=== PATIENT | female | born 1950 | race Caucasian/White ===

== ENCOUNTER → 2016-06-30 | Outpatient (CLI) | payer OTHER ==
[~2016-06-30] MED LIST: AMOX875T PO; BIOT800T2 PO; CALC-393 PO; CHOL2000 PO; HYDR-5688 PO; KETO10TA PO; LACT10CA3 PO; LISI-461 PO; MAGN1CAP2 PO; METO50TA7 PO; MORP15TA19 PO; MULT-506 PO; OMEG-128 PO; OXYC1TAB3 PO; SIMV10TA5 PO; TOPROL; TRIAMTERENE/HCTZ; VYTORIN
--- NOTE | 2016-06-30 12:43 | MAMMOGRAPHY REPORT ---
BILATERAL DIGITAL SCREENING MAMMOGRAM TOMOSYNTHESIS WITH CAD: 06/30/2016 CLINICAL HISTORY: Routine screening. Patient has no complaints. TECHNIQUE: Breast tomosynthesis in addition to standard 2D mammography was performed. Current study was also evaluated with a Computer Aided Detection (CAD) system. COMPARISON: Comparison is made to exams dated: 04/22/2015 mammogram, 02/10/2014 mammogram, 02/06/2013 mammogram, 02/18/2014 mammogram, 01/26/2012 mammogram, and 01/13/2010 mammogram - [facility]. BREAST COMPOSITION: The tissue of both breasts is almost entirely fatty. FINDINGS: No suspicious masses, calcifications, or areas of architectural distortion are noted in e ither breast. There has been no significant interval change compared to prior exams. A biopsy marke r clip is again noted in the right upper outer quadrant from prior benign stereotactic biopsy. Scat tered bilateral benign-appearing calcifications are not significantly changed. IMPRESSION: ACR BI-RADS CATEGORY 2: BENIGN There is no mammographic evidence of malignancy. A 1 year screening mammogram is recommended. The p atient will receive written notification of the results. Approximately 10% of breast cancers are not detected with mammography. A negative mammographic repor t should not delay biopsy if a clinically suggestive mass is present. Kelli Bowman M.D. /:06/30/2016 07:59:56 Chemist: Kayleen Acevedo RT(R)(M), [facility] letter sent: Normal 1/2 BI-RADS Code: ACR BI-RADS Category 2: Benign
== END | disposition home or self-care (01) ==
LOC: C.MAMM 07:31
PROVIDERS: ATTEND Family Medicine
DX: Z12.31 Encounter for screening mammogram for malignant neoplasm of breast (principal)

== ENCOUNTER → 2016-10-25 | Outpatient (CLI) | payer OTHER ==
[2016-10-25 09:40] LABS: MEAN CORPUSCULAR HEMOGLOBIN 28.2 pg (25-34); MEAN CORPUSCULAR HGB CONC 32.1 g/dl (32-36); MEAN PLATELET VOLUME 10.5 fL (7.4-10.4); PLATELET COUNT 265 K/uL (130-400); RED BLOOD COUNT 4.43 M/uL (4.2-5.4)
[2016-10-25 10:11] LABS: ALB/GLOB RATIO 1.1 (0.9-2); ALT/SGPT 38 U/L (12-78); AST/SGOT 21 U/L (15-37); BLOOD UREA NITROGEN 25 mg/dl (7-18); BUN/CREATININE RATIO 26.3 (10-20); CALCIUM 8.8 mg/dl (8.5-10.1); CARBON DIOXIDE 26 mmol/L (21-32); CHLORIDE 108 mmol/L (98-107); CREATININE 0.94 mg/dl (0.60-1.20); GLUCOSE 103 mg/dl (70-99); POTASSIUM 4.9 mmol/L (3.5-5.1); SODIUM 140 mmol/L (136-145)
[2016-10-25 10:16] LABS: ESTIMATED AVERAGE GLUCOSE 117 mg/dl; HA1C FLAG Normal (Normal)
[2016-10-25 10:22] LABS: ALKALINE PHOSPHATASE 83 U/L (45-117); CHOLESTEROL 179 mg/dl (0-200); CHOLESTEROL/HDL RATIO 3.5; HDL CHOLESTEROL 51 mg/dl; LDL CHOLESTEROL CALCULATED 101 mg/dl; TRIGLYCERIDES 134 mg/dl (0-150); VERY LOW DENSITY LIPOPROT CALC 27 mg/dl
--- NOTE | 2016-10-31 12:10 | CODING QUERY MEDICAL NECESSITY ---
SUPPORTING DIAGNOSIS NEEDED Dr. Malloy, A supporting diagnosis is required for the test/procedure performed on this patient in order for us to be reimbursed by the patient's insurance. Please provide a supporting diagnosis for the following test/procedure listed below next to the test name along with your signature. *If there is no additional diagnosis for this patient that would support the following test/procedure please document that below next to the test/procedure. Test(s)/Procedure(s) that require a supporting diagnosis: * [id number] GLYCATED HEMOGLOBIN DIAGNOSIS: DATE OF SERVICE: 10/25/16 Provider Signature: Date: Thank you Colton Henning [facility] Information Management Once completed, please kindly fax back to [phone] For questions please call [phone]
== END | disposition home or self-care (01) ==
LOC: C.LAB 08:19
PROVIDERS: ATTEND Family Medicine
DX: E78.00 Pure hypercholesterolemia, unspecified (principal); I10 Essential (primary) hypertension; R73.03 Prediabetes; M85.80 Other specified disorders of bone density and structure, unspecified site

== ENCOUNTER 2017-01-14 21:33 | Inpatient (IN) | payer OTHER ==
[~2017-01-14] VITALS: Ht 161.9 cm; Wt 77.5 kg
[~2017-01-14 21:33] MED LIST changes: -AMOX875T PO; -BIOT800T2 PO; -CALC-393 PO; -CHOL2000 PO; -HYDR-5688 PO; -LACT10CA3 PO; -LISI-461 PO; -MAGN1CAP2 PO; -METO50TA7 PO; -MULT-506 PO; -OMEG-128 PO; -SIMV10TA5 PO
[2017-01-14] MEDS ORDERED: MULT-506 PO (22:08)
[2017-01-14] MEDS ORDERED: CALC-393 PO (22:08)
[2017-01-14] MEDS ORDERED: CHOL2000 PO (22:08)
[2017-01-14] MEDS ORDERED: METO50TA7 PO (22:08)
[2017-01-14] MEDS ORDERED: OMEG-128 PO (22:08)
[2017-01-14] MEDS ORDERED: MAGN1CAP2 PO (22:08)
[2017-01-14] MEDS ORDERED: LACT10CA3 PO (22:08)
[2017-01-14] MEDS ORDERED: BIOT800T2 PO (22:08)
[2017-01-14] MEDS ORDERED: SIMV10TA5 PO (22:08)
[2017-01-14] MEDS ORDERED: LISI-461 PO (22:08)
[2017-01-14] MEDS ORDERED: SODIUM CHLORIDE 0.9% 1000ML 1,000 ML IV STA ×2 (22:33)
[2017-01-14] MEDS ORDERED: ONDANSETRON INJ 2 MG/ML 2 ML VIAL IV STA (22:33)
[2017-01-14 22:45] LABS: BASO % 0.3 %; BASO ABS # 0.03 K/uL (0-0.2); COMPLETE YES; EOS % 6.8 %; HEMATOCRIT 45.3 % (37-47); IG% 0.2 %; LYMPH ABS # 3.87 K/uL (1.2-3.4); MEAN CORPUSCULAR HEMOGLOBIN 29.4 pg (25-34); MEAN CORPUSCULAR HGB CONC 34.2 g/dl (32-36); MEAN PLATELET VOLUME 11.1 fL (7.4-10.4); MONO % 5.7 %; PLATELET COUNT 303 K/uL (130-400); RED BLOOD COUNT 5.27 M/uL (4.2-5.4); WHITE BLOOD COUNT 10.47 K/uL (4.8-10.8)
[2017-01-14 23:09] LABS: ALKALINE PHOSPHATASE 111 U/L (45-117); ALT/SGPT 63 U/L (12-78); BLOOD UREA NITROGEN 20 mg/dl (7-18); BUN/CREATININE RATIO 18.4 (10-20); CALCIUM 9.6 mg/dl (8.5-10.1); CARBON DIOXIDE 25 mmol/L (21-32); CHLORIDE 105 mmol/L (98-107); GLUCOSE 103 mg/dl (70-99); SODIUM 141 mmol/L (136-145)
[2017-01-15 00:25] LABS: POTASSIUM 3.9 mmol/L (3.5-5.1)
[2017-01-15 00:35] LABS: AST/SGOT 135 U/L (15-37)
[2017-01-15 00:59] LABS: AMYLASE 2809 U/L (25-115)
[2017-01-15] MEDS ORDERED: ZOLPIDEM TARTRATE 5 MG TAB PO PRN (01:00)
[2017-01-15] MEDS ORDERED: ONDANSETRON INJ 2 MG/ML 2 ML VIAL IV PRN (01:00)
[2017-01-15] MEDS ORDERED: POLYETHYLENE (MIRALAX) 17 GM PACK PO PRN (01:00)
[2017-01-15] MEDS ORDERED: ALUMINUM/MAGNESIUM/SIMETH (MAALOX MAX) 30 ML UDC PO PRN (01:00)
[2017-01-15] MEDS ORDERED: MAGNESIUM HYDROXIDE SUSP 30 ML UDC PO PRN (01:00)
--- NOTE | 2017-01-15 01:24 | EMERGENCY ROOM VISIT NOTE ---
History Report prepared by Yulissa: Mao Lucas Under the Supervision of: Dr. Abrahan Orourke M.D. First contact with patient: 22:33 Chief Complaint: VOMITING Stated Complaint: GEN ILLNESS/VOMIT Nursing Triage Summary: Pt arrives to ER via ALS with c/o acute onset N/V approx 1 hour DENITRATOR. Pt reports 8/10 abdominal pain. Pt reports symptoms began after eating dinner. History of Present Illness The patient is a 66 year old female who presents to the Emergency Room via ALS with complaints of a persistent illness that started around 2 hours ago. She says that she was fine all day, until after dinner, when she started having abdominal pain with nausea, vomiting, and diarrhea. The patient says her pain was an 8 out of 10 in severity initially, and has now subsided a bit, and she wants to hold off on pain medications for now. Pt denies LOC, headache, fevers, chills, diaphoresis, visual changes, neck pain, chest pain, breathing difficulties, back pain, melena, hematochezia, urinary symptoms, numbness, weakness, lymphadenopathy, rash, or other complaints. Source of History: patient Onset: 2 hours ago Position: other (global - illness) Timing: other (persistent) Associated Symptoms: + nausea, + vomiting, + abdominal pain, + diarrhea Note: No other associated symptoms noted. Review of Systems See HPI for pertinent positives and negatives. A total of ten systems were reviewed and were otherwise negative. Past Medical & Surgical Medical Problems: (1) Abdominal pain (2) HLD (hyperlipidemia) (3) Renal colic Surgical Problems: (1) Kidney stones Family History No pertinent family history Social History Smoking Status: Former Smoker Marital Status: Occupation Status: retired Current/Historical Medications Scheduled Biotin (Biotin), Unknown Dose PO DAILY Calcium Carbonate (Calcium), Unknown Dose PO DAILY Cholecalciferol (Vitamin D3), Unknown Dose PO DAILY Lactobacillus-Inulin (Culturelle), 1 CAP PO DAILY Lisinopril (Zestril), Unknown Dose PO DAILY Magnesium Oxide (Mg Supplement (Magnesium), Unknown Dose PO DAILY Metoprolol Succ (Toprol Xl) (Toprol-Xl), Unknown Dose PO DAILY Multivitamin (Multivitamin), 1 TAB PO DAILY [place]-3 Fatty Acids (Fish Oil [place]-3 1000 mg), 1 CAP PO DAILY Simvastatin (Zocor), Unknown Dose PO QPM Allergies Coded Allergies: No Known Allergies (Unverified , 01/14/17) Physical Exam Vital Signs Date Time Temp Pulse Resp B/P (MAP) Pulse Ox O2 Delivery O2 Flow Rate FiO2 01/14/17 23:55 77 20 109/46 96 Room Air 01/14/17 22:30 66 16 131/64 97 Room Air 01/14/17 22:03 69 01/14/17 21:50 94 Room Air 01/14/17 21:44 36.5 65 18 171/94 94 Room Air Physical Exam GENERAL: Awake, alert, uncomfortable-appearing, in no distress HENT: Normocephalic, atraumatic. Oropharynx unremarkable. EYES: Normal conjunctiva. Sclera non-icteric. NECK: Supple. No nuchal rigidity. FROM. No JVD. RESPIRATORY: Clear to auscultation. CARDIAC: Regular rate, normal rhythm. Extremities warm and well perfused. Pulses equal. ABDOMEN: Soft, non-distended. Midline abdominal tenderness.. No rebound or guarding. No masses. RECTAL: Deferred. MUSCULOSKELETAL: Chest examination reveals no tenderness. The back is symmetrical on inspection without obvious abnormality. There is no CVA tenderness to palpation. No joint edema. LOWER EXTREMITIES: Calves are equal size bilaterally and non-tender. No edema. No discoloration. NEURO: Normal sensorium. No sensory or motor deficits noted. SKIN: No rash or jaundice noted. Medical Decision & Procedures ER Provider Diagnostic Interpretation: CT: Radiology results as stated below per my review and radiologist interpretation CT ABDOMEN & PELVIS: Acute enteritis: There is wall thickening and edema associated with the small bowel which is consistent with acute inflammation. Regional stranding of the mesenteric fat is present and mild lymphadenopathy which extends to the periportal region. Pattern is nonspecific and inflammatory bowel disease as well as infectious etiologies would be in the differential. Ischemia also in the differential though there is no evidence for large bowel involvement. No evidence for perforation or abscess. Gallbladder demonstrates questionable mild wall thickening, likely related to regional reactive change though nonspecific. Mild free fluid. Diverticulosis of the colon without diverticulitis. Appendix is unremarkable. Arthrosclerosis. Small hiatal hernia. Degenerative osseous changes. Radiologist: Gabo Lopez M.D. Laboratory Results 01/14/17 21:16 Red Blood Count 5.27, Mean Corpuscular Volume 86.0, Mean Corpuscular Hemoglobin 29.4, Mean Corpuscular Hemoglobin Concent 34.2, Mean Platelet Volume 11.1, Neutrophils (%) (Auto) 50.0, Lymphocytes (%) (Auto) 37.0, Monocytes (%) (Auto) 5.7, Eosinophils (%) (Auto) 6.8, Basophils (%) (Auto) 0.3, Neutrophils # (Auto) 5.24, Lymphocytes # (Auto) 3.87, Monocytes # (Auto) 0.60, Eosinophils # (Auto) 0.71, Basophils # (Auto) 0.03 01/14/17 21:16 01/14/17 23:52 Test 01/14/17 21:16 01/14/17 23:52 01/15/17 01:00 White Blood Count 10.47 K/uL (4.8-10.8) Red Blood Count 5.27 M/uL (4.2-5.4) Hemoglobin 15.5 g/dL (12.0-16.0) Hematocrit 45.3 % (37-47) Mean Corpuscular Volume 86.0 fL (80-100) Mean Corpuscular Hemoglobin 29.4 pg (25-34) Mean Corpuscular Hemoglobin Concent 34.2 g/dl (32-36) Platelet Count 303 K/uL (130-400) Mean Platelet Volume 11.1 fL (7.4-10.4) Neutrophils (%) (Auto) 50.0 % Lymphocytes (%) (Auto) 37.0 % Monocytes (%) (Auto) 5.7 % Eosinophils (%) (Auto) 6.8 % Basophils (%) (Auto) 0.3 % Neutrophils # (Auto) 5.24 K/uL (1.4-6.5) Lymphocytes # (Auto) 3.87 K/uL (1.2-3.4) Monocytes # (Auto) 0.60 K/uL (0.11-0.59) Eosinophils # (Auto) 0.71 K/uL (0-0.5) Basophils # (Auto) 0.03 K/uL (0-0.2) RDW Standard Deviation 42.6 fL (36.4-46.3) RDW Coefficient of Variation 13.7 % (11.5-14.5) Immature Granulocyte % (Auto) 0.2 % Immature Granulocyte # (Auto) 0.02 K/uL (0.00-0.02) Anion Gap 11.0 mmol/L (3-11) Est Creatinine Clear Calc Drug Dose 49.0 ml/min Estimated GFR () 59.7 Estimated GFR (Non- 51.5 BUN/Creatinine Ratio 18.4 (10-20) Calcium Level 9.6 mg/dl (8.5-10.1) Total Bilirubin 0.4 mg/dl (0.2-1) Alanine Aminotransferase (ALT/SGPT) 63 U/L (12-78) Alkaline Phosphatase 111 U/L (45-117) Total Protein 8.3 gm/dl (6.4-8.2) Albumin 4.4 gm/dl (3.4-5.0) Direct Bilirubin 0.2 mg/dl (0-0.2) Aspartate Amino Transf (AST/SGOT) 135 U/L (15-37) Troponin I < 0.015 ng/ml (0-0.045) Amylase Level 2809 U/L (25-115) Lipase 43238 U/L (73-393) Laboratory results reviewed by me Medications Administered Medications (Trade) Dose Ordered Sig/Kinza Route Start Time Stop Time Status Last Admin Dose Admin Sodium Chloride 1,000 ml @ 125 mls/hr Q8H STAT IV 01/14/17 22:33 01/15/17 06:32 01/14/17 22:52 125 MLS/HR Sodium Chloride 1,000 ml @ 999 mls/hr Q1H1M STAT IV 01/14/17 22:33 01/14/17 23:33 DC 01/14/17 22:51 999 MLS/HR Ondansetron HCl (Zofran Inj) 4 mg NOW STAT IV 01/14/17 22:33 01/14/17 22:34 DC 01/14/17 22:52 4 MG ECG Indication: nausea Rate (beats per minute): 68 Rhythm: normal sinus Findings: no acute ischemic change, no ectopy ED Course 2231: The patient was evaluated in room B6. A complete history and physical exam was performed. 2232: Ordered Zofran Inj 4 mg IV, NSS 1000 ml @ 999 mls/hr IV, NSS 1000 ml @ 125 mls/hr IV. 0018: I reevaluated and updated the patient. The patient will need admission to the hospital. 0043: I discussed the case with internal medicine for admission. Medical Decision Triage Nursing notes reviewed. The patient's presentation and history were concerning for nausea, vomiting, abdominal pain. Etiologies such as gastroenteritis, food borne illness, infections, obstruction , pancreatitis, appendicitis, diverticulitis, inflammatory bowel disease, GI bleed, biliary pathology, toxicologic as well as others were entertained. The patient was evaluated. She was given additional Zofran and normal saline. She declined analgesia as she was starting to feel better with rest and the IV fluids. She had blood work obtained. Her CBC and chemistry panel were unremarkable. The patient's LFTs were normal. Her troponin was normal. ECG was unremarkable. CT scan and a pelvis was as above. On my review there was some concern about stranding around the pancreas. The patient had a marked elevation of her lipase of over 26,000. This is concerning for pancreatitis. The patient was continued NPO. Consultation was made with internal medicine. I did order a gallbladder ultrasound. This is pending. Medication Reconcilliation Current Medication List: was personally reviewed by me Blood Pressure Screening Patient's blood pressure: Elevated blood pressure Blood pressure disposition: Elevated BP felt to be situational Consults Time Called: 42 Consulting Physician: Dr. Paris Returned Call: 42 Discussed the patient's history, physical and presentation and concerns for pancreatitis. He will evaluate the patient for further management. Impression Primary Impression: Pancreatitis Additional Impressions: Vomiting Abdominal pain Scribe Attestation The scribe's documentation has been prepared under my direction and personally reviewed by me in its entirety. I confirm that the note above accurately reflects all work, treatment, procedures, and medical decision making performed by me. Departure Information Dispostion Being Evaluated By Hospitalist Referrals Gladys Malloy DO (PCP) Patient Instructions My [facility] Problem Qualifiers Additional Impressions: Abdominal pain Abdominal location: epigastric Qualified Codes: R10.13 - Epigastric pain
[2017-01-15 01:47] LABS: TRIGLYCERIDES 115 mg/dl (0-150)
[2017-01-15] MEDS: D5NSS + 20MEQ KCL 1,000 ML IV SCH ×4 (03:34→22:30)
[2017-01-15 03:50] VITALS: BP 130/68; PULSE 78; TEMP 36.6; O2SAT 96; Ht 161.9 cm; Wt 77.5 kg
--- NOTE | 2017-01-15 04:09 | History and Physical ---
History & Physical Date & Time of Service: Jan 15, 2017 at 03:35 Chief Complaint: Abdominal Pain Primary Care Physician: Gladys Malloy DO History of Present Illness Source: patient 66 y/o F Hx HTN, HPL. Pt had enjoyed a steak diner at a friends house when she became acutely ill with nausea, vomiting, diarrhea and moderate to severe upper quadrant abdominal pain. She presented to the ER where her symptoms gradually resolved following treatment with narcotics and antiemetics. A CT abdomen is consistent with enteritis. A gallbladder US reveals a distended gall with multiple stones including a stone lodged in the gallbladder neck. The pt did not have any abdominal tenderness at the time of evaluation for admission. Initial labs are notable for a markedly elevated Lipase. 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 Allergies Coded Allergies: No Known Allergies (Unverified , 01/14/17) Home Medications Scheduled Biotin (Biotin), Unknown Dose PO DAILY Calcium Carbonate (Calcium), Unknown Dose PO DAILY Cholecalciferol (Vitamin D3), Unknown Dose PO DAILY Lactobacillus-Inulin (Culturelle), 1 CAP PO DAILY Lisinopril (Zestril), Unknown Dose PO DAILY Magnesium Oxide (Mg Supplement (Magnesium), Unknown Dose PO DAILY Metoprolol Succ (Toprol Xl) (Toprol-Xl), Unknown Dose PO DAILY Multivitamin (Multivitamin), 1 TAB PO DAILY [place]-3 Fatty Acids (Fish Oil [place]-3 1000 mg), 1 CAP PO DAILY Simvastatin (Zocor), Unknown Dose PO QPM Review of Systems Constitutional: No fever, No chills, No sweats Eyes: No worsening of vision ENT: No hearing loss, No unusual epistaxis, No nasal symptoms Respiratory: No cough, No sputum, No wheezing Cardiovascular: No chest pain, No orthopnea, No PND Abdomen: + pain, + nausea, + vomiting, + diarrhea Musculoskeletal: No joint pain Genitourinary - Female: No dysuria Neurologic: No memory loss, No paralysis, No weakness Psychiatric: No depression symptoms Endocrine: No fatigue Hematologic / Lymphatic: No abnormal bleeding/bruising Integumentary: No rash Allergic / Immunologic: No environmental allergies Physical Exam Vital Signs Date Time Temp Pulse Resp B/P (MAP) Pulse Ox O2 Delivery O2 Flow Rate FiO2 01/15/17 01:33 85 20 112/62 96 01/14/17 23:55 77 20 109/46 96 Room Air 01/14/17 22:30 66 16 131/64 97 Room Air 01/14/17 22:03 69 01/14/17 21:50 94 Room Air 01/14/17 21:44 36.5 65 18 171/94 94 Room Air General Appearance: WD/WN, no apparent distress Head: normocephalic Eyes: normal inspection ENT: normal ENT inspection, pharynx normal Neck: supple, no JVD Respiratory/Chest: chest non-tender, lungs clear, normal breath sounds, no respiratory distress, no accessory muscle use Cardiovascular: regular rate, rhythm, no edema, no gallop, no JVD, no murmur, normal peripheral pulses Abdomen/GI: normal bowel sounds, non tender, soft Back: normal inspection, no CVA tenderness, no muscle spasm, normal range of motion Extremities/Musculoskelatal: normal inspection, normal range of motion Neurologic/Psych: device sales consultant II-XII nml as tested, no motor/sensory deficits, alert, normal mood/affect, normal reflexes, oriented x 3 Skin: normal color, warm/dry, no rash Diagnostics Laboratory Results Results Past 24 Hours Test 01/14/17 21:16 01/14/17 23:52 Range/Units White Blood Count 10.47 4.8-10.8 K/uL Red Blood Count 5.27 4.2-5.4 M/uL Hemoglobin 15.5 12.0-16.0 g/dL Hematocrit 45.3 37-47 % Mean Corpuscular Volume 86.0 80-100 fL Mean Corpuscular Hemoglobin 29.4 25-34 pg Mean Corpuscular Hemoglobin Concent 34.2 32-36 g/dl Platelet Count 303 130-400 K/uL Mean Platelet Volume 11.1 7.4-10.4 fL Neutrophils (%) (Auto) 50.0 % Lymphocytes (%) (Auto) 37.0 % Monocytes (%) (Auto) 5.7 % Eosinophils (%) (Auto) 6.8 % Basophils (%) (Auto) 0.3 % Neutrophils # (Auto) 5.24 1.4-6.5 K/uL Lymphocytes # (Auto) 3.87 1.2-3.4 K/uL Monocytes # (Auto) 0.60 0.11-0.59 K/uL Eosinophils # (Auto) 0.71 0-0.5 K/uL Basophils # (Auto) 0.03 0-0.2 K/uL RDW Standard Deviation 42.6 36.4-46.3 fL RDW Coefficient of Variation 13.7 11.5-14.5 % Immature Granulocyte % (Auto) 0.2 % Immature Granulocyte # (Auto) 0.02 0.00-0.02 K/uL Sodium Level 141 136-145 mmol/L Potassium Level 3.9 3.5-5.1 mmol/L Chloride Level 105 98-107 mmol/L Carbon Dioxide Level 25 21-32 mmol/L Anion Gap 11.0 3-11 mmol/L Blood Urea Nitrogen 20 7-18 mg/dl Creatinine 1.10 0.60-1.20 mg/dl Est Creatinine Clear Calc Drug Dose 49.0 ml/min Estimated GFR () 59.7 Estimated GFR (Non- 51.5 BUN/Creatinine Ratio 18.4 10-20 Random Glucose 103 70-99 mg/dl Calcium Level 9.6 8.5-10.1 mg/dl Total Bilirubin 0.4 0.2-1 mg/dl Direct Bilirubin 0.2 0-0.2 mg/dl Aspartate Amino Transf (AST/SGOT) 135 15-37 U/L Alanine Aminotransferase (ALT/SGPT) 63 12-78 U/L Alkaline Phosphatase 111 45-117 U/L Total Protein 8.3 6.4-8.2 gm/dl Albumin 4.4 3.4-5.0 gm/dl Troponin I < 0.015 0-0.045 ng/ml Triglycerides Level 115 0-150 mg/dl Amylase Level 2809 25-115 U/L Lipase 40453 73-393 U/L Diagnostic Radiology CT abdomen: wall thickening and edema of small bowel - mesenteric stranding - consistent with enteritis - ischemia not excluded Gallbladder US: distended gall bladder with multiple stones including a stone lodged in neck Impression Assessment and Plan 66 y/o F Hx HTN, HPL. Pt had enjoyed a steak diner at a friends house when she became acutely ill with nausea, vomiting, diarrhea and moderate to severe upper quadrant abdominal pain. She presented to the ER where her symptoms gradually resolved following treatment with narcotics and antiemetics. A CT abdomen is consistent with enteritis. A gallbladder US reveals a distended gall with multiple stones including a stone lodged in the gallbladder neck. The pt did not have any abdominal tenderness at the time of evaluation for admission. Initial labs are notable for a markedly elevated Lipase. 1) Abdominal pain - possibly gall stone pancreatitis vs acute enteritis which is more consistent with current imaging - ischemia less likely. Based on her imaging results we will consult both GI and gen surgery. The pt will be kept NPO, aggressively hydrated and provided with antiemetics and narcotics as needed. Lactic acid is pending. 2) HTN - we will continue Lisinopril and Toprol 3) HPL - statin held until diet is advanced Full code - Heparin prophylaxis - total time for this admit including review of labs, meds, imaging - discussion with pt and ER attending 34 min Level of Care Med/Surg Resuscitation Status FULL RESUSCITATION VTE Prophylaxis VTE Risk Assessment Done? Y/N: Yes Risk Level: Low
[2017-01-15 04:45] LABS: PROTHROMBIN TIME (PATIENT) 10.9 SECONDS (9.0-12.0)
[2017-01-15 04:59] LABS: BUN/CREATININE RATIO 21.7 (10-20); CREATININE 0.91 mg/dl (0.60-1.20); MAGNESIUM 1.8 mg/dl (1.8-2.4); POTASSIUM 4.1 mmol/L (3.5-5.1)
[2017-01-15] MEDS: HEPARIN SOD 5000 UNIT/0.5 ML CARP SQ SCH ×3 (06:33→22:30)
--- NOTE | 2017-01-15 07:03 | DIAGNOSTIC IMAGING REPORT ---
ABDOMINAL ULTRASOUND, RIGHT UPPER QUADRANT HISTORY: Pancreatitis and gallbladder wall thickening. COMPARISON: CT of the abdomen and pelvis January 14, 2017 FINDINGS: The pancreatic body is slightly heterogeneous. The head and tail are obscured. There is no peripancreatic fluid collections. There is a small amount of perihepatic ascites. No biliary ductal dilatation is identified. The common bile duct measures 5 mm in caliber. No choledocholithiasis was identified although the distal common bile duct was partially obscured. The gallbladder is mildly distended and contains several gallstones, one of which was immobile within the gallbladder neck. There was no gallbladder wall thickening. Gallbladder sludge was noted. There is trace pericholecystic fluid. No sonographic Cee sign was elicited. No hepatic lesions were identified. No right hydronephrosis was identified. IMPRESSION: 1. Cholelithiasis and mild gallbladder distention with trace pericholecystic fluid. No sonographic Cee's sign or gallbladder wall thickening. A hepatobiliary scan could be obtained if suspicion for acute cholecystitis. 2. No biliary ductal dilatation. 3. Heterogeneity of the pancreatic body which could be correlated with biochemical assays for acute pancreatitis. 4. Small amount of perihepatic fluid. Electronically signed by: Randy Olmedo M.D. 01/15/2017 7:02 AM Dictated Date/Time: 01/15/2017 6:57 AM
--- NOTE | 2017-01-15 07:08 | DIAGNOSTIC IMAGING REPORT ---
CT SCAN OF THE ABDOMEN AND PELVIS WITHOUT CONTRAST CLINICAL HISTORY: Generalized abdominal pain, nausea, vomiting. History of kidney stones. COMPARISON STUDY: August 03, 2006 TECHNIQUE: CT scan of the abdomen and pelvis was performed from the lung bases to the proximal femurs. Images are reviewed in the axial, sagittal, and coronal planes. IV contrast was not administered for this examination. A dose lowering technique was utilized adhering to the principles of ALARA. CT DOSE: 685.64 mGycm FINDINGS: Lower chest: The heart is normal in size and configuration, without pericardial effusion. The lung bases and pleural spaces are clear. There is a hiatal hernia Liver: There is trace perihepatic fluid. No focal masses are visualized. Gallbladder: Cholelithiasis. Spleen: There is a small amount of perisplenic fluid. No splenic masses are visualized. Pancreas: There is peripancreatic edema. No pancreatic masses are visualized in this noncontrast study. Adrenal glands: Unremarkable. Kidneys: There is a nonobstructing 4 mm lower pole left renal calculus. There is no hydronephrosis. No ureteral or bladder calculi are visualized. Bowel: There are no transition zones indicate bowel obstruction. There is duodenal, jejunal, and proximal and mid ileal wall thickening. There is infiltration of the mesentery. There is a small amount of interloop fluid. The findings are consistent with a nonspecific enteritis. There is no evidence of acute appendicitis. There is colonic diverticulosis. There is no acute diverticulitis. Peritoneum: No free air is visualized. There is a small amount of free fluid. Vasculature: The abdominal aorta is normal in course and caliber. Adenopathy: There are borderline enlarged mesenteric and periportal lymph nodes. Pelvic viscera: The bladder, and pelvic viscera are unremarkable. Skeletal structures: No destructive osseous lesions are seen. IMPRESSION: 1. No evidence of bowel obstruction. No evidence of free air 2. Cholelithiasis 3. Small bowel wall thickening with mesenteric edema and minimal interloop fluid. The findings are consistent with a nonspecific enteritis. 4. Peripancreatic edema, likely secondary to the above-described enteritis. 5. Diverticulosis. No evidence of acute diverticulitis. No evidence of acute appendicitis 6. Hiatal hernia 7. Nonobstructing lower pole left renal calculus 8. Small amount of free fluid Electronically signed by: Johan Palacio M.D. 01/15/2017 7:07 AM Dictated Date/Time: 01/15/2017 6:58 AM
[2017-01-15 07:47] VITALS: BP 108/66; PULSE 76; TEMP 36.7; O2SAT 96
[2017-01-15] MEDS: METOPROLOL SUCC 25MG EXT REL TAB PO SCH (08:11)
[2017-01-15] MEDS: LISINOPRIL 5 MG TAB PO SCH (08:11)
--- NOTE | 2017-01-15 08:55 | Medical Consult ---
Consultation Date of Consultation: Jan 15, 2017. Attending Physician: Nigel Paris M.D. History of Present Illness 66 y/o female with epigastric pain, nausea and vomiting several hours after eating steak dinner with buttered potatoes and corn. Admitted to medical service overnight for pancreatitis. No previous biliary history, no bloating or fatty food intolerance. No back pain last night. This morning she is pain free. Past Medical/Surgical History Medical Problems: (1) Abdominal pain (2) HLD (hyperlipidemia) (3) Renal colic Surgical Problems: (1) Kidney stones 2) mitral valve repair age 28 3) knee arthroscopy Family History No pertinent family history Social History Smoking Status: Former Smoker Marital Status: Occupation Status: retired Allergies Coded Allergies: No Known Allergies (Unverified , 01/14/17) Current Inpatient Medications Current Inpatient Medications Medications (Trade) Dose Ordered Sig/Kinza Route Start Time Stop Time Status Last Admin Dose Admin Lisinopril (Zestril Tab) 5 mg QAM PO 01/15/17 09:00 02/14/17 08:59 01/15/17 08:11 5 MG Metoprolol Succinate (Toprol Xl Tab) 25 mg QAM PO 01/15/17 09:00 02/14/17 08:59 01/15/17 08:11 25 MG Potassium Chloride/Dextrose/ Sod Cl 1,000 ml @ 150 mls/hr Q6H40M IV 01/15/17 02:45 02/14/17 02:44 01/15/17 03:34 150 MLS/HR Heparin Sodium (Porcine) (Heparin Sq 5000 Unit/0.5ml) 5,000 unit Q8H SQ 01/15/17 06:00 02/14/17 05:59 01/15/17 06:33 5,000 UNIT Acetaminophen (Tylenol Tab) 650 mg Q4H PRN PO 01/15/17 01:00 02/14/17 00:59 Al Hydrox/Mg Hydrox/Simethicone (Maalox Max Susp) 15 ml Q4H PRN PO 01/15/17 01:00 02/14/17 00:59 Magnesium Hydroxide (Milk Of Magnesia Susp) 30 ml Q6H PRN PO 01/15/17 01:00 02/14/17 00:59 Polyethylene (Miralax Powder Packet) 17 gm DAILY PRN PO 01/15/17 01:00 02/14/17 00:59 Zolpidem Tartrate (Ambien Tab) 5 mg HSZ PRN PO 01/15/17 01:00 02/14/17 00:59 Ondansetron HCl (Zofran Inj) 4 mg Q6H PRN IV 01/15/17 01:00 02/14/17 00:59 Review of Systems Constitutional: No fever, No chills Respiratory: No shortness of breath Cardiovascular: No chest pain Abdomen: + pain, + nausea, + vomiting, + diarrhea Physical Exam Date Time Temp Pulse Resp B/P (MAP) Pulse Ox O2 Delivery O2 Flow Rate FiO2 01/15/17 07:47 36.7 76 18 108/66 (80) 96 Room Air 01/15/17 03:50 36.6 78 20 130/68 96 Room Air 01/15/17 01:33 85 20 112/62 96 01/14/17 23:55 77 20 109/46 96 Room Air 01/14/17 22:30 66 16 131/64 97 Room Air 01/14/17 22:03 69 01/14/17 21:50 94 Room Air 01/14/17 21:44 36.5 65 18 171/94 94 Room Air General Appearance: WD/WN, no apparent distress ENT: normal ENT inspection Respiratory/Chest: lungs clear, normal breath sounds Cardiovascular: regular rate, rhythm Abdomen/GI: non tender, soft (nondistended) Neurologic/Psych: normal mood/affect Laboratory Results Last 24 Hours Test 01/14/17 21:16 01/14/17 23:52 01/15/17 04:22 White Blood Count 10.47 K/uL Red Blood Count 5.27 M/uL Hemoglobin 15.5 g/dL Hematocrit 45.3 % Mean Corpuscular Volume 86.0 fL Mean Corpuscular Hemoglobin 29.4 pg Mean Corpuscular Hemoglobin Concent 34.2 g/dl Platelet Count 303 K/uL Mean Platelet Volume 11.1 fL Neutrophils (%) (Auto) 50.0 % Lymphocytes (%) (Auto) 37.0 % Monocytes (%) (Auto) 5.7 % Eosinophils (%) (Auto) 6.8 % Basophils (%) (Auto) 0.3 % Neutrophils # (Auto) 5.24 K/uL Lymphocytes # (Auto) 3.87 K/uL Monocytes # (Auto) 0.60 K/uL Eosinophils # (Auto) 0.71 K/uL Basophils # (Auto) 0.03 K/uL RDW Standard Deviation 42.6 fL RDW Coefficient of Variation 13.7 % Immature Granulocyte % (Auto) 0.2 % Immature Granulocyte # (Auto) 0.02 K/uL Sodium Level 141 mmol/L 142 mmol/L Potassium Level mmol/L 3.9 mmol/L 4.1 mmol/L Chloride Level 105 mmol/L 110 mmol/L Carbon Dioxide Level 25 mmol/L 26 mmol/L Anion Gap 11.0 mmol/L 6.0 mmol/L Blood Urea Nitrogen 20 mg/dl 20 mg/dl Creatinine 1.10 mg/dl 0.91 mg/dl Est Creatinine Clear Calc Drug Dose 49.0 ml/min 59.3 ml/min Estimated GFR () 59.7 75.1 Estimated GFR (Non- 51.5 64.8 BUN/Creatinine Ratio 18.4 21.7 Random Glucose 103 mg/dl 147 mg/dl Calcium Level 9.6 mg/dl 8.0 mg/dl Total Bilirubin 0.4 mg/dl Direct Bilirubin mg/dl 0.2 mg/dl Aspartate Amino Transf (AST/SGOT) U/L 135 U/L Alanine Aminotransferase (ALT/SGPT) 63 U/L Alkaline Phosphatase 111 U/L Total Protein 8.3 gm/dl Albumin 4.4 gm/dl Troponin I < 0.015 ng/ml Triglycerides Level 115 mg/dl Amylase Level 2809 U/L Lipase 77920 U/L Prothrombin Time 10.9 SECONDS Prothromb Time International Ratio 1.0 Lactic Acid Level 1.1 mmol/L Magnesium Level 1.8 mg/dl ABDOMINAL ULTRASOUND, RIGHT UPPER QUADRANT HISTORY: Pancreatitis and gallbladder wall thickening. COMPARISON: CT of the abdomen and pelvis January 14, 2017 FINDINGS: The pancreatic body is slightly heterogeneous. The head and tail are obscured. There is no peripancreatic fluid collections. There is a small amount of perihepatic ascites. No biliary ductal dilatation is identified. The common bile duct measures 5 mm in caliber. No choledocholithiasis was identified although the distal common bile duct was partially obscured. The gallbladder is mildly distended and contains several gallstones, one of which was immobile within the gallbladder neck. There was no gallbladder wall thickening. Gallbladder sludge was noted. There is trace pericholecystic fluid. No sonographic Cee sign was elicited. No hepatic lesions were identified. No right hydronephrosis was identified. IMPRESSION: 1. Cholelithiasis and mild gallbladder distention with trace pericholecystic fluid. No sonographic Cee's sign or gallbladder wall thickening. A hepatobiliary scan could be obtained if suspicion for acute cholecystitis. 2. No biliary ductal dilatation. 3. Heterogeneity of the pancreatic body which could be correlated with biochemical assays for acute pancreatitis. 4. Small amount of perihepatic fluid. Electronically signed by: Randy Olmedo M.D. 01/15/2017 7:02 AM Dictated Date/Time: 01/15/2017 6:57 AM Assessment & Plan biliary pancreatitis improved this morning repeat labs in AM recommend lap nito when pancreatitis resolves, she is hesitant 01/15/17- (Dr Osuna)- I have reviewed chart and examined the pt- agree with above assessment- will monitor lipase- pt is asx at present and doing well. Discussed cholecystectomy with pt and best to proceed this adm- she agrees- possibly tomorrow.
[2017-01-15 10:49] LABS: URINE APPEARANCE CLEAR (CLEAR); URINE BILIRUBIN NEG (NEG); URINE COLOR YELLOW; URINE NITRITE NEG (NEG); URINE SPECIFIC GRAVITY 1.025 (1.000-1.030); UROBILINOGEN NEG (NEG); ZZUR CULT IF INDIC CLEAN CATCH NO
[2017-01-15 10:50] LABS: MANUAL MICROSCOPIC REQUIRED? NO; REVIEW REQ? NO
[2017-01-15 10:59] LABS: ALB/GLOB RATIO 1.1 (0.9-2)
--- NOTE | 2017-01-15 11:25 | Surgery Progress Note ---
Surgery Progress Note Date of Service Jan 15, 2017. Subjective lipase has come down significantly from last night and she feels better- likely passed stone/ sludge - plan for lap nito in am 01/16 if stable Objective Vital Signs: Date Time Temp Pulse Resp B/P (MAP) Pulse Ox O2 Delivery O2 Flow Rate FiO2 01/15/17 08:00 Room Air 01/15/17 07:47 36.7 76 18 108/66 (80) 96 Room Air 01/15/17 03:50 36.6 78 20 130/68 96 Room Air 01/15/17 01:33 85 20 112/62 96 01/14/17 23:55 77 20 109/46 96 Room Air 01/14/17 22:30 66 16 131/64 97 Room Air 01/14/17 22:03 69 01/14/17 21:50 94 Room Air 01/14/17 21:44 36.5 65 18 171/94 94 Room Air Laboratory Results: Results Past 24 Hours Test 01/14/17 21:16 01/14/17 23:52 01/15/17 00:00 01/15/17 04:22 Range/Units White Blood Count 10.47 4.8-10.8 K/uL Red Blood Count 5.27 4.2-5.4 M/uL Hemoglobin 15.5 12.0-16.0 g/dL Hematocrit 45.3 37-47 % Mean Corpuscular Volume 86.0 80-100 fL Mean Corpuscular Hemoglobin 29.4 25-34 pg Mean Corpuscular Hemoglobin Concent 34.2 32-36 g/dl Platelet Count 303 130-400 K/uL Mean Platelet Volume 11.1 7.4-10.4 fL Neutrophils (%) (Auto) 50.0 % Lymphocytes (%) (Auto) 37.0 % Monocytes (%) (Auto) 5.7 % Eosinophils (%) (Auto) 6.8 % Basophils (%) (Auto) 0.3 % Neutrophils # (Auto) 5.24 1.4-6.5 K/uL Lymphocytes # (Auto) 3.87 1.2-3.4 K/uL Monocytes # (Auto) 0.60 0.11-0.59 K/uL Eosinophils # (Auto) 0.71 0-0.5 K/uL Basophils # (Auto) 0.03 0-0.2 K/uL RDW Standard Deviation 42.6 36.4-46.3 fL RDW Coefficient of Variation 13.7 11.5-14.5 % Immature Granulocyte % (Auto) 0.2 % Immature Granulocyte # (Auto) 0.02 0.00-0.02 K/uL Sodium Level 141 142 136-145 mmol/L Potassium Level 3.9 4.1 3.5-5.1 mmol/L Chloride Level 105 110 98-107 mmol/L Carbon Dioxide Level 25 26 21-32 mmol/L Anion Gap 11.0 6.0 3-11 mmol/L Blood Urea Nitrogen 20 20 7-18 mg/dl Creatinine 1.10 0.91 0.60-1.20 mg/dl Est Creatinine Clear Calc Drug Dose 49.0 59.3 ml/min Estimated GFR () 59.7 75.1 Estimated GFR (Non- 51.5 64.8 BUN/Creatinine Ratio 18.4 21.7 10-20 Random Glucose 103 147 70-99 mg/dl Calcium Level 9.6 8.0 8.5-10.1 mg/dl Total Bilirubin 0.4 0.4 0.2-1 mg/dl Direct Bilirubin 0.2 0.2 0-0.2 mg/dl Aspartate Amino Transf (AST/SGOT) 135 112 15-37 U/L Alanine Aminotransferase (ALT/SGPT) 63 102 12-78 U/L Alkaline Phosphatase 111 85 45-117 U/L Total Protein 8.3 6.0 6.4-8.2 gm/dl Albumin 4.4 3.2 3.4-5.0 gm/dl Troponin I < 0.015 0-0.045 ng/ml Triglycerides Level 115 0-150 mg/dl Amylase Level 2809 25-115 U/L Lipase 05889 7870 73-393 U/L Urine Color YELLOW Urine Appearance CLEAR CLEAR Urine pH 7.0 4.5-7.5 Urine Specific [place] 1.025 1.000-1.030 Urine Protein NEG NEG Urine Glucose (UA) NEG NEG Urine Ketones NEG NEG Urine Occult Blood NEG NEG Urine Nitrite NEG NEG Urine Bilirubin NEG NEG Urine Urobilinogen NEG NEG Urine Leukocyte Esterase NEG NEG Prothrombin Time 10.9 9.0-12.0 SECONDS Prothromb Time International Ratio 1.0 0.9-1.1 Lactic Acid Level 1.1 0.4-2.0 mmol/L Magnesium Level 1.8 1.8-2.4 mg/dl Globulin 2.8 2.5-4.0 gm/dl Albumin/Globulin Ratio 1.1 0.9-2
[2017-01-15] MEDS: CEFUROXIME IV 1,500 MG in DEXTROSE 5% 100ML 100 ML IV SCH ×2 (13:20→20:30)
--- NOTE | 2017-01-15 14:55 | Hospitalist Progress Note ---
Hospitalist Progress Note Date of Service Jan 15, 2017. (Kathleen Foote ., LÓPEZ) Subjective Pt evaluation today including: conversation w/ patient, physical exam, chart review, lab review, review of studies, review of inpatient medication list Voiding: no voiding problems, no incontinence Patient states she is feeling well. No abdominal pain. Currently NPO. Planning for lap nito tomorrow. Patient denies any fever, chills, sweats, lightheadedness, dizziness, vision changes, CP, palpitations, edema, SOB, wheezing, cough, abdominal pain, nausea, vomiting, diarrhea, urinary symptoms, melena, numbness/tingling, weakness, muscle/joint pain, anxiety/depression, active bleeding, or new skin discoloration/changes. (Kathleen Foote ., CATERINAC) Medications Current Inpatient Medications Medications (Trade) Dose Ordered Sig/Kinza Route Start Time Stop Time Status Last Admin Dose Admin Lisinopril (Zestril Tab) 5 mg QAM PO 01/15/17 09:00 02/14/17 08:59 01/15/17 08:11 5 MG Metoprolol Succinate (Toprol Xl Tab) 25 mg QAM PO 01/15/17 09:00 02/14/17 08:59 01/15/17 08:11 25 MG Potassium Chloride/Dextrose/ Sod Cl 1,000 ml @ 150 mls/hr Q6H40M IV 01/15/17 02:45 02/14/17 02:44 01/15/17 09:19 150 MLS/HR Heparin Sodium (Porcine) (Heparin Sq 5000 Unit/0.5ml) 5,000 unit Q8H SQ 01/15/17 06:00 02/14/17 05:59 01/15/17 13:24 5,000 UNIT Acetaminophen (Tylenol Tab) 650 mg Q4H PRN PO 01/15/17 01:00 02/14/17 00:59 Al Hydrox/Mg Hydrox/Simethicone (Maalox Max Susp) 15 ml Q4H PRN PO 01/15/17 01:00 02/14/17 00:59 Magnesium Hydroxide (Milk Of Magnesia Susp) 30 ml Q6H PRN PO 01/15/17 01:00 02/14/17 00:59 Polyethylene (Miralax Powder Packet) 17 gm DAILY PRN PO 01/15/17 01:00 02/14/17 00:59 Zolpidem Tartrate (Ambien Tab) 5 mg HSZ PRN PO 01/15/17 01:00 02/14/17 00:59 Ondansetron HCl (Zofran Inj) 4 mg Q6H PRN IV 01/15/17 01:00 02/14/17 00:59 Cefuroxime Sodium 1500 mg/Dextrose 115 ml @ 200 mls/hr Q8H IV 01/15/17 12:30 01/25/17 12:29 01/15/17 13:20 200 MLS/HR (Kathleen Foote, KATTY-C) Objective Vital Signs Date Time Temp Pulse Resp B/P (MAP) Pulse Ox O2 Delivery O2 Flow Rate FiO2 01/15/17 08:00 Room Air 01/15/17 07:47 36.7 76 18 108/66 (80) 96 Room Air 01/15/17 03:50 36.6 78 20 130/68 96 Room Air 01/15/17 01:33 85 20 112/62 96 01/14/17 23:55 77 20 109/46 96 Room Air 01/14/17 22:30 66 16 131/64 97 Room Air 01/14/17 22:03 69 01/14/17 21:50 94 Room Air 01/14/17 21:44 36.5 65 18 171/94 94 Room Air (Kathleen Foote, KATTY-C) Physical Exam General Appearance: WD/WN, no apparent distress Eyes: normal inspection, PERRL ENT: hearing grossly normal Neck: supple Respiratory/Chest: lungs clear, no respiratory distress, no accessory muscle use Cardiovascular: regular rate, rhythm Abdomen: normal bowel sounds, non tender, soft Extremities: no pedal edema, no calf tenderness Neurologic/Psychiatric: alert, normal mood/affect, oriented x 3 Skin: normal color, warm/dry, no rash (Kathleen Foote, KATTY-C) Laboratory Results Last 24 Hours Test 01/14/17 21:16 01/14/17 23:52 01/15/17 00:00 01/15/17 04:22 White Blood Count 10.47 K/uL Red Blood Count 5.27 M/uL Hemoglobin 15.5 g/dL Hematocrit 45.3 % Mean Corpuscular Volume 86.0 fL Mean Corpuscular Hemoglobin 29.4 pg Mean Corpuscular Hemoglobin Concent 34.2 g/dl Platelet Count 303 K/uL Mean Platelet Volume 11.1 fL Neutrophils (%) (Auto) 50.0 % Lymphocytes (%) (Auto) 37.0 % Monocytes (%) (Auto) 5.7 % Eosinophils (%) (Auto) 6.8 % Basophils (%) (Auto) 0.3 % Neutrophils # (Auto) 5.24 K/uL Lymphocytes # (Auto) 3.87 K/uL Monocytes # (Auto) 0.60 K/uL Eosinophils # (Auto) 0.71 K/uL Basophils # (Auto) 0.03 K/uL RDW Standard Deviation 42.6 fL RDW Coefficient of Variation 13.7 % Immature Granulocyte % (Auto) 0.2 % Immature Granulocyte # (Auto) 0.02 K/uL Sodium Level 141 mmol/L 142 mmol/L Potassium Level mmol/L 3.9 mmol/L 4.1 mmol/L Chloride Level 105 mmol/L 110 mmol/L Carbon Dioxide Level 25 mmol/L 26 mmol/L Anion Gap 11.0 mmol/L 6.0 mmol/L Blood Urea Nitrogen 20 mg/dl 20 mg/dl Creatinine 1.10 mg/dl 0.91 mg/dl Est Creatinine Clear Calc Drug Dose 49.0 ml/min 59.3 ml/min Estimated GFR () 59.7 75.1 Estimated GFR (Non- 51.5 64.8 BUN/Creatinine Ratio 18.4 21.7 Random Glucose 103 mg/dl 147 mg/dl Calcium Level 9.6 mg/dl 8.0 mg/dl Total Bilirubin 0.4 mg/dl 0.4 mg/dl Direct Bilirubin mg/dl 0.2 mg/dl 0.2 mg/dl Aspartate Amino Transf (AST/SGOT) U/L 135 U/L 112 U/L Alanine Aminotransferase (ALT/SGPT) 63 U/L 102 U/L Alkaline Phosphatase 111 U/L 85 U/L Total Protein 8.3 gm/dl 6.0 gm/dl Albumin 4.4 gm/dl 3.2 gm/dl Troponin I < 0.015 ng/ml Triglycerides Level 115 mg/dl Amylase Level 2809 U/L Lipase 32474 U/L 7870 U/L Urine Color YELLOW Urine Appearance CLEAR Urine pH 7.0 Urine Specific [place] 1.025 Urine Protein NEG Urine Glucose (UA) NEG Urine Ketones NEG Urine Occult Blood NEG Urine Nitrite NEG Urine Bilirubin NEG Urine Urobilinogen NEG Urine Leukocyte Esterase NEG Prothrombin Time 10.9 SECONDS Prothromb Time International Ratio 1.0 Lactic Acid Level 1.1 mmol/L Magnesium Level 1.8 mg/dl Globulin 2.8 gm/dl Albumin/Globulin Ratio 1.1 (Kathleen Foote ., PAJoshC) Assessment and Plan 66 y/o F Hx HTN, HPL. Pt had enjoyed a steak diner at a friends house when she became acutely ill with nausea, vomiting, diarrhea and moderate to severe upper quadrant abdominal pain. She presented to the ER where her symptoms gradually resolved following treatment with narcotics and antiemetics. A CT abdomen is consistent with enteritis. A gallbladder US reveals a distended gall with multiple stones including a stone lodged in the gallbladder neck. The pt did not have any abdominal tenderness at the time of evaluation for admission. Initial labs are notable for a markedly elevated Lipase. 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 Discussed with Kathleen Foote PAC and agree with findings and plan as documented in the note. Any exceptions or clarifications are listed here: None Patient with gallstone pancreatitis, lipase went from 26,000 down to 7000. She is evaluated by general surgery and will have a cholecystectomy scheduled for January 16. Other medical problems are stable she is maximized to reduce risk prior to surgery next Vital signs are stable next Abdomen is with normoactive bowel sounds and still right upper quadrant pain cardiac exam is regular and lungs are clear Gallstone pancreatitis with persistent stones continue the gallbladder, patient likely passed a stone seen in the gallbladder neck on initial imaging she'll be scheduled for cholecystectomy January 16 with advancement of diet and pain control be managed by general surgery Lisinopril metoprolol be continued in the perioperative period being short give her metoprolol preoperatively Documented By: Gordo Siddiqui (Gordo Siddiqui M.D.)
[2017-01-15 15:35] VITALS: BP 111/73; PULSE 69; TEMP 36.4; O2SAT 92
--- NOTE | 2017-01-15 17:06 | Gastrointestinal Consultation ---
Gastrointestinal Consultation Date of Consultation: Jan 15, 2017 Attending Physician: Dr. Paris Consulting Physician: Dr. Keith/KATRIN Renae Reason for Consultation: Acute pancreatitis History of Present Illness Patient is a 66 year old female admitted with acute onset of abdominal pain as well as nausea with vomiting. She denies any fevers or chills. On arrival, the patient did have a liver panel which was elevated as follows: AST 112 and ALT 102. Total bilirubin and direct bilirubin were normal at 0.4 and 0.2 respectively. ALP was 85. Amylase was significantly elevated 2809 [place] [address] on 01/14 which has dropped to 7820 today. Gall bladder ultrasound was performed and demonstrated a distended gall bladder with pericholecystic fluid, perihepatic ascites and multiple gall stones, one immobile within the gall bladder neck. There was no evidence of choledocholithiasis with a CBD of [address] imaging obtained demonstrated peripancreatic edema. Currently, the patient is reporting no abdominal pain, nausea or vomiting and is resting comfortably. Patient has been seen by Dr. Osuna and is scheduled for lap nito in the morning. She has been started on IV antibiotics. Past Medical/Surgical History Medical Problems: (1) Pancreatitis Status: Acute (2) Vomiting Status: Acute Past Medical History: 1. Nephrolithiasis 2. Hyperlipidemia 3. Hypertension Past Surgical History: 1. Mitral valve repair 2. Knee surgery 3. Lithotripsy Family History No pertinent family history Brother with chronic liver disease related to alcoholism Social History Smoking Status: Former Smoker Alcohol Use: occasionally Drug Use: none Marital Status: Occupation Status: retired Allergies Coded Allergies: No Known Allergies (Unverified , 01/14/17) Current Medications Home Meds and Scripts Medications Dose Route/Sig Max Daily Dose Days Date Category Culturelle (Lactobacillus-Inulin) 1 Cap Cap 1 Cap PO DAILY 01/14/17 Reported Biotin Unknown Strength Tab Unknown Dose PO DAILY 01/14/17 Reported Vitamin D3 (Cholecalciferol) Unknown Strength Cap Unknown Dose PO DAILY 90 01/14/17 Reported Calcium (Calcium Carbonate) Unknown Strength Tab Unknown Dose PO DAILY 01/14/17 Reported Magnesium (Magnesium Oxide (Mg Supplement) Unknown Strength Cap Unknown Dose PO DAILY 01/14/17 Reported Fish Oil [place]-3 1000 mg ([place]-3 Fatty Acids) 1 Cap Cap 1 Cap PO DAILY 01/14/17 Reported Multivitamin (Multivitamins) Tab 1 Tab PO DAILY 01/14/17 Reported Zocor (Simvastatin) Unknown Strength Tab Unknown Dose PO QPM 01/14/17 Reported Toprol-Xl (Metoprolol Succinate) Unknown Strength Tabcr Unknown Dose PO DAILY 01/14/17 Reported Zestril (Lisinopril) Unknown Strength Tab Unknown Dose PO DAILY 01/14/17 Reported Review of Systems See HPI for pertinent positives & negatives. A total of 10 systems reviewed and were otherwise negative. Physical Exam Date Time Temp Pulse Resp B/P (MAP) Pulse Ox O2 Delivery O2 Flow Rate FiO2 01/15/17 15:35 36.4 69 20 111/73 (86) 92 01/15/17 08:00 Room Air 01/15/17 07:47 36.7 76 18 108/66 (80) 96 Room Air 01/15/17 03:50 36.6 78 20 130/68 96 Room Air 01/15/17 01:33 85 20 112/62 96 01/14/17 23:55 77 20 109/46 96 Room Air 01/14/17 22:30 66 16 131/64 97 Room Air 01/14/17 22:03 69 01/14/17 21:50 94 Room Air 01/14/17 21:44 36.5 65 18 171/94 94 Room Air General Appearance: WD/WN, no apparent distress Eyes: EOMI ENT: hearing grossly normal Neck: supple Respiratory/Chest: lungs clear, normal breath sounds, no respiratory distress Cardiovascular: regular rate, rhythm, no gallop, no murmur Abdomen: normal bowel sounds, non tender, soft Extremities: normal inspection Neurologic/Psych: alert, normal mood/affect, oriented x 3 Skin: warm/dry Laboratory Results Last 24 Hours Test 01/14/17 21:16 01/14/17 23:52 01/15/17 00:00 01/15/17 04:22 White Blood Count 10.47 K/uL Red Blood Count 5.27 M/uL Hemoglobin 15.5 g/dL Hematocrit 45.3 % Mean Corpuscular Volume 86.0 fL Mean Corpuscular Hemoglobin 29.4 pg Mean Corpuscular Hemoglobin Concent 34.2 g/dl Platelet Count 303 K/uL Mean Platelet Volume 11.1 fL Neutrophils (%) (Auto) 50.0 % Lymphocytes (%) (Auto) 37.0 % Monocytes (%) (Auto) 5.7 % Eosinophils (%) (Auto) 6.8 % Basophils (%) (Auto) 0.3 % Neutrophils # (Auto) 5.24 K/uL Lymphocytes # (Auto) 3.87 K/uL Monocytes # (Auto) 0.60 K/uL Eosinophils # (Auto) 0.71 K/uL Basophils # (Auto) 0.03 K/uL RDW Standard Deviation 42.6 fL RDW Coefficient of Variation 13.7 % Immature Granulocyte % (Auto) 0.2 % Immature Granulocyte # (Auto) 0.02 K/uL Sodium Level 141 mmol/L 142 mmol/L Potassium Level mmol/L 3.9 mmol/L 4.1 mmol/L Chloride Level 105 mmol/L 110 mmol/L Carbon Dioxide Level 25 mmol/L 26 mmol/L Anion Gap 11.0 mmol/L 6.0 mmol/L Blood Urea Nitrogen 20 mg/dl 20 mg/dl Creatinine 1.10 mg/dl 0.91 mg/dl Est Creatinine Clear Calc Drug Dose 49.0 ml/min 59.3 ml/min Estimated GFR () 59.7 75.1 Estimated GFR (Non- 51.5 64.8 BUN/Creatinine Ratio 18.4 21.7 Random Glucose 103 mg/dl 147 mg/dl Calcium Level 9.6 mg/dl 8.0 mg/dl Total Bilirubin 0.4 mg/dl 0.4 mg/dl Direct Bilirubin mg/dl 0.2 mg/dl 0.2 mg/dl Aspartate Amino Transf (AST/SGOT) U/L 135 U/L 112 U/L Alanine Aminotransferase (ALT/SGPT) 63 U/L 102 U/L Alkaline Phosphatase 111 U/L 85 U/L Total Protein 8.3 gm/dl 6.0 gm/dl Albumin 4.4 gm/dl 3.2 gm/dl Troponin I < 0.015 ng/ml Triglycerides Level 115 mg/dl Amylase Level 2809 U/L Lipase 95773 U/L 7870 U/L Urine Color YELLOW Urine Appearance CLEAR Urine pH 7.0 Urine Specific [place] 1.025 Urine Protein NEG Urine Glucose (UA) NEG Urine Ketones NEG Urine Occult Blood NEG Urine Nitrite NEG Urine Bilirubin NEG Urine Urobilinogen NEG Urine Leukocyte Esterase NEG Prothrombin Time 10.9 SECONDS Prothromb Time International Ratio 1.0 Lactic Acid Level 1.1 mmol/L Magnesium Level 1.8 mg/dl Globulin 2.8 gm/dl Albumin/Globulin Ratio 1.1 Impression Patient is a 66 year old female admitted with acute onset of abdominal pain with nausea and vomiting as well as elevated liver/pancreatic enzymes and imaging suggestive of acute pancreatitis, possibly related to known cholelithiasis. Plan 1. Agree with NPO status and lap nito as planned by Dr. Osuna tomorrow. 2. Continue to trend liver panel and lipase to ensure resolution. 3. Supportive medical management. Thank you for allowing us to participate in the care of this pleasant patient. If you have any questions or concerns, please do not hesitate to contact us. Agree with KATRIN Renae as above Abd: Soft, tender mild RUQ, ND, +BS Continue current therapy For OR in the AM with Dr. Osuna
[2017-01-16] VITALS (13 sets, daily range): BP systolic 106–145; BP diastolic 66–85; PULSE 66–118; TEMP 36.4–37; O2SAT 88–98
[2017-01-16] MEDS: CEFUROXIME IV 1,500 MG in DEXTROSE 5% 100ML 100 ML IV SCH ×3 (04:26→20:10)
[2017-01-16] MEDS: HEPARIN SOD 5000 UNIT/0.5 ML CARP SQ SCH ×3 (05:19→21:49)
[2017-01-16] MEDS ORDERED: ONDANSETRON INJ 2 MG/ML 2 ML VIAL ONE (06:32)
[2017-01-16] MEDS ORDERED: ROCURONIUM BROMIDE 10 MG/ML 5 ML VIAL ONE (06:32)
[2017-01-16] MEDS ORDERED: PROPOFOL IV EMULSION 10 MG/ML 20 ML VIAL IV ONE (06:32)
[2017-01-16] MEDS ORDERED: NEOSTIGMINE METHYLSULFATE 5 MG/5 ML SYR ONE (06:32)
[2017-01-16] MEDS ORDERED: GLYCOPYRROLATE INJ 0.2 MG/ML VIAL ONE (06:32)
[2017-01-16] MEDS ORDERED: LIDOCAINE HCL 2% 2 ML VIAL (20MG/ML) ONE (06:32)
[2017-01-16] MEDS ORDERED: MIDAZOLAM HCL 1 MG/ML 2ML VIAL ONE (06:33)
[2017-01-16] MEDS ORDERED: FENTANYL CITRATE INJ 50 MCG/1 ML 2 ML VIAL ONE ×2 (06:33→07:46)
[2017-01-16] MEDS ORDERED: CONRAY 60% 50 ML VIAL ONE (06:51)
[2017-01-16] MEDS ORDERED: BUPIVACAINE 0.5 % 5 MG/1 ML MPF 30ML VIAL ONE (06:52)
--- NOTE | 2017-01-16 06:56 | History & Physical Bridge Note ---
H&P Re-Evaluation Bridge Note: I have examined the patient, reviewed the History & Physical and in the interval since the performance of the History & Physical I have noted the following changes of clinical significance: No changes noted
[2017-01-16] MEDS ORDERED: LABETALOL HCL IV 5 MG/ML 20ML IV PRN (08:00)
[2017-01-16] MEDS ORDERED: ONDANSETRON INJ 2 MG/ML 2 ML VIAL IV PRN ×2 (08:00→08:30)
[2017-01-16] MEDS ORDERED: ATROPINE SULFATE 0.1 MG/ML 5ML SYR IV PRN (08:00)
[2017-01-16] MEDS ORDERED: HYDROmorphone INJ 2 MG/ML SYR/VIAL IV PRN (08:00)
[2017-01-16] MEDS ORDERED: KETOROLAC TROMETHAMINE 30 MG/ML VIAL IV. PRN (08:00)
--- NOTE | 2017-01-16 08:18 | [facility] Operative Report ---
Operative Report Operative Date Jan 16, 2017. Pre-Operative Diagnosis cholelithiasis. gallstone pancreatitis Post-Operative Diagnosis same, bilious ascites, hydrops of gallbladder, acute cholecystitis Procedure(s) Performed Laparoscopic Cholecystectomy Surgeon Dr. Amador Osuna Director Supply Surgeon(s) Scar Carlos Pa-C Estimated Blood Loss 10 ml Findings see above, hydrops Specimens a. Gallbladder Drains #15 Rd GAEL to subhepatic space Complication(s) None Disposition Recovery Room / PACU I attest to the content of the Intraoperative Record and any orders documented therein. Any exceptions are noted below.
[2017-01-16] MEDS ORDERED: HYDROCODONE/ACETAMOPHEN 5/325MG TAB PO PRN ×2 (08:30)
[2017-01-16] MEDS ORDERED: PROMETHAZINE HCL INJ 25 MG in SODIUM CHLORIDE 0.9% 50ML 50 ML IV PRN (08:30)
--- NOTE | 2017-01-16 08:40 | OPERATIVE REPORT ---
DATE OF OPERATION: 01/16/2017 PREOPERATIVE DIAGNOSIS: Acute cholecystitis. POSTOPERATIVE DIAGNOSIS: Same with hydrops and bilious ascites. NAME OF OPERATION: Laparoscopic cholecystectomy. STAFF SURGEON: Dr. Osuna. SALES TRAINING COORDINATOR: Scar Carlos PA-C. ANESTHESIA: General. FINDINGS: Findings were distended gallbladder acutely inflamed, bilious ascites, hydrops of the gallbladder. OPERATION AND FINDINGS: PROCEDURE: The patient was brought in the operating room and placed on the operating table in supine position. Pneumatic stockings and orogastric tube were placed. Her abdomen was prepped and draped in usual fashion. 0.5% plain Marcaine was used to anesthetize all incisions. Incision was made above the umbilicus, carrying dissection down to the fascia, placing a Veress needle producing pneumoperitoneum. An 11 mm port was placed at this level and then the camera passed. Under visualization three 5 mm ports were placed, 1 cephalad and 2 laterally, all under visualization. The patient was placed in reverse Trendelenburg position, rotated to the left. There is evidence of significant bilious ascites. The gallbladder was distended and thickened consistent with acute cholecystitis. The bile was aspirated. It was clear, indicating hydrops. Dissection was carried out at the levi hepatis with a stone lodged in the neck of the gallbladder. Dissection was carried out identifying the cystic duct which was clipped and transected. Cystic artery was identified as well as the common hepatic artery. This was clipped and transected and the gallbladder dissected away from the liver bed. There was severe edema in the gallbladder wall. The gallbladder was placed in an Endobag. After appropriate hemostasis and irrigation, I do think I could identify a duct of Luschka in the bed of the gallbladder. This was clipped. A #15 round Cristino-Gates drain was placed through the lateral 5 mm port site into the subhepatic space, secured to the skin using 3-0 nylon suture. The gallbladder was removed via an Endobag through the umbilical site. I did have to enlarge the fascial defect to remove the stones. There were at least 2 large stones within the gallbladder. The fascia at the umbilicus closed using interrupted 0 Vicryl suture. The subcutaneous tissue reapproximated using 2-0 plain catgut suture then the skin at the umbilicus closed using 5-0 Prolene suture. The other sites closed using subcuticular 4-0 Monocryl and Dermabond. The patient was transferred to recovery room in stable condition. I attest to the content of the Intraoperative Record and any orders documented therein. Any exception s are noted below.
[2017-01-16] MEDS ORDERED: PROMETHAZINE HCL INJ 12.5 MG in SODIUM CHLORIDE 0.9% 50ML 50 ML IV PRN (09:15)
[2017-01-16] MEDS ORDERED: ALBUTEROL 0.083% NEBU SOLN 3 ML VIAL INH STA (09:44)
--- NOTE | 2017-01-16 10:43 | DIAGNOSTIC IMAGING REPORT ---
CHEST ONE VIEW PORTABLE CLINICAL HISTORY: Shortness of breath COMPARISON STUDY: No previous studies for comparison. FINDINGS: The heart is mildly enlarged. There are postsurgical changes of a midline sternotomy. There is pulmonary edema. There is no lobar consolidation. There is an equivocal small right pleural effusion[ IMPRESSION: Pulmonary edema. Electronically signed by: Johan Palacio M.D. 01/16/2017 10:41 AM Dictated Date/Time: 01/16/2017 10:41 AM
--- NOTE | 2017-01-16 10:49 | Anesthesiology Progress Note ---
Anesthesia Post Op Note Date & Time Jan 16, 2017 at 10:49 Vital Signs Pain Intensity: 0 Vital Signs Past 12 Hours Date Time Temp Pulse Resp B/P (MAP) Pulse Ox O2 Delivery O2 Flow Rate FiO2 01/16/17 10:45 79 16 153/79 96 Nasal Cannula 4 01/16/17 10:35 36.1 78 16 145/79 96 Oxymask 5 01/16/17 10:25 74 16 141/77 99 Oxymask 5 01/16/17 10:15 70 16 142/73 99 BiPAP 50 01/16/17 10:08 118 98 50 01/16/17 10:05 98 20 90 Diffusion Mask 10.0 01/16/17 10:05 95 16 154/85 99 BiPAP 50 01/16/17 09:55 121 20 179/93 95 Oxymask 8 01/16/17 09:45 95 20 149/112 91 Oxymask 10 01/16/17 09:35 79 18 192/96 91 Oxymask 10 01/16/17 09:25 80 18 180/89 91 Oxymask 7 01/16/17 09:15 77 18 169/75 93 Oxymask 7 01/16/17 09:05 78 18 175/76 92 Oxymask 10 01/16/17 08:55 73 18 158/79 97 Oxymask 5 01/16/17 08:45 74 12 153/85 97 Oxymask 10 01/16/17 08:36 36.7 77 12 153/77 98 Oxymask 10 01/16/17 06:32 36.4 67 20 124/82 (96) 97 Room Air 01/16/17 05:27 69 135/85 (102) 01/16/17 00:00 36.8 75 20 106/66 (79) 93 Room Air 01/16/17 00:00 Room Air Notes Mental Status: alert / awake / arousable, participated in evaluation Pt Amnestic to Procedure: Yes Nausea / Vomiting: adequately controlled Pain: adequately controlled Airway Patency, RR, SpO2: stable & adequate BP & HR: stable & adequate Hydration State: stable & adequate Anesthetic Complications: no major complications apparent
[2017-01-16 11:42] LABS: BUN/CREATININE RATIO 11.3 (10-20); CALCIUM 8.4 mg/dl (8.5-10.1); CREATININE 0.83 mg/dl (0.60-1.20); POTASSIUM 4.8 mmol/L (3.5-5.1)
[2017-01-16 11:43] LABS: BUN/CREATININE RATIO 10.6 (10-20); CREATININE 0.81 mg/dl (0.60-1.20)
[2017-01-16] MEDS ORDERED: ALBUT/IPRATROP 3MG/0.5MG NEB 3 ML VIAL INH PRN (11:45)
[2017-01-16 11:50] LABS: POTASSIUM 4.8 mmol/L (3.5-5.1)
[2017-01-16] MEDS: LISINOPRIL 5 MG TAB PO SCH (12:31)
[2017-01-16] MEDS: METOPROLOL SUCC 25MG EXT REL TAB PO SCH (12:31)
--- NOTE | 2017-01-16 13:27 | Hospitalist Progress Note ---
Hospitalist Progress Note Date of Service Jan 16, 2017. (Kathleen Foote ., PA-C) Subjective Pt evaluation today including: conversation w/ patient, physical exam, chart review, lab review, review of inpatient medication list Voiding: no voiding problems Patient states she is feeling well s/p lap nito. +wheezing- h/o smoking, requiring 4L O2 NC. Pain well controlled. No flatus/BM postop. Currently NPO- advancing to clears as per surgery for lunch. Patient denies any fever, chills, sweats, lightheadedness, dizziness, vision changes, CP, palpitations, edema, cough, abdominal pain, nausea, vomiting, diarrhea, urinary symptoms, melena, numbness/tingling, weakness, muscle/joint pain, anxiety/depression, active bleeding, or new skin discoloration/changes. (Kathleen Foote ., PA-C) Medications Current Inpatient Medications Medications (Trade) Dose Ordered Sig/Kinza Route Start Time Stop Time Status Last Admin Dose Admin Lisinopril (Zestril Tab) 5 mg QAM PO 01/15/17 09:00 02/14/17 08:59 01/15/17 08:11 5 MG Metoprolol Succinate (Toprol Xl Tab) 25 mg QAM PO 01/15/17 09:00 02/14/17 08:59 01/15/17 08:11 25 MG Heparin Sodium (Porcine) (Heparin Sq 5000 Unit/0.5ml) 5,000 unit Q8H SQ 01/15/17 06:00 02/14/17 05:59 01/15/17 13:24 5,000 UNIT Acetaminophen (Tylenol Tab) 650 mg Q4H PRN PO 01/15/17 01:00 02/14/17 00:59 Al Hydrox/Mg Hydrox/Simethicone (Maalox Max Susp) 15 ml Q4H PRN PO 01/15/17 01:00 02/14/17 00:59 Magnesium Hydroxide (Milk Of Magnesia Susp) 30 ml Q6H PRN PO 01/15/17 01:00 02/14/17 00:59 Polyethylene (Miralax Powder Packet) 17 gm DAILY PRN PO 01/15/17 01:00 02/14/17 00:59 Zolpidem Tartrate (Ambien Tab) 5 mg HSZ PRN PO 01/15/17 01:00 02/14/17 00:59 Ondansetron HCl (Zofran Inj) 4 mg Q6H PRN IV 01/15/17 01:00 02/14/17 00:59 Cefuroxime Sodium 1500 mg/Dextrose 115 ml @ 200 mls/hr Q8H IV 01/15/17 12:30 01/25/17 12:29 01/16/17 04:26 200 MLS/HR Ondansetron HCl (Zofran Inj) 4 mg ONE PRN IV 01/16/17 08:00 01/16/17 13:00 Atropine Sulfate (Atropine Sulfate 0.1MG/Ml Inj) 0.5 mg Q1M PRN IV 01/16/17 08:00 01/16/17 13:00 Ketorolac Tromethamine (Toradol Inj) 15 mg ONE PRN IV. 01/16/17 08:00 01/16/17 13:00 01/16/17 08:45 15 MG Hydromorphone HCl (Dilaudid Inj) 0.25 mg Q5M PRN IV 01/16/17 08:00 01/16/17 13:00 01/16/17 08:50 0.25 MG Labetalol HCl (Normodyne IV) 5 mg Q5M PRN IV 01/16/17 08:00 01/16/17 13:00 Acetaminophen/ Hydrocodone Bitart (Fitzwilliam 5/325 Tab) 1 tab Q4 PRN PO 01/16/17 08:30 01/30/17 08:29 Acetaminophen/ Hydrocodone Bitart (Fitzwilliam 5/325 Tab) 2 tab Q4 PRN PO 01/16/17 08:30 01/30/17 08:29 Promethazine HCl 25 mg/Sodium Chloride 51 ml @ 204 mls/hr Q6H PRN IV 01/16/17 08:30 02/15/17 08:29 Promethazine HCl 12.5 mg/Sodium Chloride 50.5 ml @ 204 mls/hr Q6H PRN IV 01/16/17 09:15 02/15/17 09:14 (Kathleen Foote, LÓPEZ) Objective Vital Signs Date Time Temp Pulse Resp B/P (MAP) Pulse Ox O2 Delivery O2 Flow Rate FiO2 01/16/17 10:55 94 Nasal Cannula 4.0 01/16/17 10:55 36.5 73 18 145/76 (99) 94 Nasal Cannula 4.0 01/16/17 10:55 Nasal Cannula 4.0 01/16/17 10:45 79 16 153/79 96 Nasal Cannula 4 01/16/17 10:35 36.1 78 16 145/79 96 Oxymask 5 01/16/17 10:25 74 16 141/77 99 Oxymask 5 01/16/17 10:15 70 16 142/73 99 BiPAP 50 01/16/17 10:08 118 98 50 01/16/17 10:05 98 20 90 Diffusion Mask 10.0 01/16/17 10:05 95 16 154/85 99 BiPAP 50 01/16/17 09:55 121 20 179/93 95 Oxymask 8 01/16/17 09:45 95 20 149/112 91 Oxymask 10 01/16/17 09:35 79 18 192/96 91 Oxymask 10 01/16/17 09:25 80 18 180/89 91 Oxymask 7 01/16/17 09:15 77 18 169/75 93 Oxymask 7 01/16/17 09:05 78 18 175/76 92 Oxymask 10 01/16/17 08:55 73 18 158/79 97 Oxymask 5 01/16/17 08:45 74 12 153/85 97 Oxymask 10 01/16/17 08:36 36.7 77 12 153/77 98 Oxymask 10 01/16/17 06:32 36.4 67 20 124/82 (96) 97 Room Air 01/16/17 05:27 69 135/85 (102) 01/16/17 00:00 36.8 75 20 106/66 (79) 93 Room Air 01/16/17 00:00 Room Air 01/15/17 16:20 Room Air 01/15/17 15:35 36.4 69 20 111/73 (86) 92 (Kathleen Foote, PA-C) Physical Exam General Appearance: no apparent distress, + pertinent finding (4L O2 NC ) Eyes: normal inspection, PERRL ENT: hearing grossly normal Neck: supple Respiratory/Chest: + wheezing (expiratory wheeze throughout all lung addison ), + pertinent finding (coarse breath sounds throughout ) Cardiovascular: regular rate, rhythm Abdomen: normal bowel sounds, soft, + tenderness (around incision sites ), + pertinent finding (incision dressings clean; GAEL drain noted ) Extremities: no pedal edema, no calf tenderness Neurologic/Psychiatric: alert, normal mood/affect, oriented x 3 Skin: normal color, warm/dry, no rash (Kathleen Foote .LÓPEZ) Laboratory Results Last 24 Hours Test 01/16/17 11:07 (Kathleen Foote PA-C) Assessment and Plan 66 y/o F Hx HTN, HPL. Pt had enjoyed a steak diner at a friends house when she became acutely ill with nausea, vomiting, diarrhea and moderate to severe upper quadrant abdominal pain. She presented to the ER where her symptoms gradually resolved following treatment with narcotics and antiemetics. A CT abdomen is consistent with enteritis. A gallbladder US reveals a distended gall with multiple stones including a stone lodged in the gallbladder neck. The pt did not have any abdominal tenderness at the time of evaluation for admission. Initial labs are notable for a markedly elevated Lipase. Pancreatitis, secondary to acute cholecystis due to gallstone: - Admit to med/surg - Trend lipase- 37029 at admission (01/14)--> down to 7870 on 01/15--> 210 on - Treated w/ IVF @ 150 ml/hr - Abdominal CT and gallbladder US- cholelithiasis - SOB/wheezing postop- O2 protocol, DuoNebs PRN, encouraged incentive spirometer - continue to monitor, if no improvement in the next 24 hours will obtain CXR - Follow postop CBC and CMP - Consulted General Surgery, appreciate recommendations -- Lap nito on 01/16 due to acute cholecystis -- Pain management per surgery w/ Fitzwilliam and IV Dilaudid PRN -- Advancing diet per surgery recommendations - Consulted GI, appreciate recommendations HTN: Continue Lisinopril 5 mg daily and Toprol 25 mg daily Hyperlipidemia: Holding Zocor- resume once tolerating diet 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 Discussed with Kathleen Foote PAC and agree with findings and plan as documented in the note. Any exceptions or clarifications are listed here: None This patient was seen postoperatively in her room she was having clear liquids she is in no pain she is status post a cholecystectomy by Dr. Amador Osuna. Vital signs are stable Cardiac exam was regular rhythm lungs were clear with good air movement she does have a mild raspy voice Abdomen was mildly tender wounds were clean dry and intact next Patient is status post cholecystectomy for gallstone pancreatitis doing well anticipate early discharge Documented By: Gordo Siddiqui (Gordo Siddiqui M.D.)
[2017-01-16 15:11] LABS: BASO % 0.1 %; BASO ABS # 0.01 K/uL (0-0.2); COMPLETE YES; EOS % 1.5 %; HEMATOCRIT 37.3 % (37-47); IG% 0.7 %; LYMPH % 14.5 %; LYMPH ABS # 1.49 K/uL (1.2-3.4); MEAN CELL VOLUME 90.5 fL (80-100); MEAN CORPUSCULAR HEMOGLOBIN 28.9 pg (25-34); MEAN CORPUSCULAR HGB CONC 31.9 g/dl (32-36); MEAN PLATELET VOLUME 10.9 fL (7.4-10.4); MONO % 3.9 %; NEUT % 79.3 %; PLATELET COUNT 221 K/uL (130-400); RED BLOOD COUNT 4.12 M/uL (4.2-5.4); WHITE BLOOD COUNT 10.25 K/uL (4.8-10.8)
[2017-01-16] MEDS ORDERED: NURSING DECISION MEDICATION ORDER SCH (23:15)
[2017-01-16] MEDS ORDERED: COUGH DROP (SUGAR FREE) LOZ 24 LOZ/1 BOX PO PRN (23:15)
[2017-01-17 03:05] VITALS: BP 126/73; PULSE 66; TEMP 36.8; O2SAT 98
[2017-01-17] MEDS: CEFUROXIME IV 1,500 MG in DEXTROSE 5% 100ML 100 ML IV SCH ×3 (04:13→21:25)
[2017-01-17] MEDS: ACETAMINOPHEN 325 MG TAB PO PRN ×2 (04:22→22:28)
[2017-01-17] MEDS: HEPARIN SOD 5000 UNIT/0.5 ML CARP SQ SCH ×3 (05:53→21:52)
--- NOTE | 2017-01-17 06:36 | Surgery Progress Note ---
Surgery Progress Note Date of Service Jan 17, 2017. Subjective tolerating liquids, no acute chgs, drain- serosang Objective Vital Signs: Date Time Temp Pulse Resp B/P (MAP) Pulse Ox O2 Delivery O2 Flow Rate FiO2 01/17/17 03:05 36.8 66 16 126/73 (90) 98 Nasal Cannula 2.0 01/16/17 23:30 Nasal Cannula 2.0 01/16/17 22:54 95 Nasal Cannula 2.0 01/16/17 22:50 37.0 66 16 122/70 (87) 88 Room Air 01/16/17 18:56 37.0 69 18 124/70 (88) 95 Room Air 01/16/17 15:55 Room Air 01/16/17 15:50 36.7 66 18 115/68 (84) 95 Room Air 01/16/17 13:54 70 18 130/74 (92) 01/16/17 12:18 36.4 69 18 107/69 (82) 96 4.0 01/16/17 11:30 67 18 122/67 (85) 01/16/17 10:55 94 Nasal Cannula 4.0 01/16/17 10:55 36.5 73 18 145/76 (99) 94 Nasal Cannula 4.0 01/16/17 10:55 Nasal Cannula 4.0 01/16/17 10:45 79 16 153/79 96 Nasal Cannula 4 01/16/17 10:35 36.1 78 16 145/79 96 Oxymask 5 01/16/17 10:25 74 16 141/77 99 Oxymask 5 01/16/17 10:15 70 16 142/73 99 BiPAP 50 01/16/17 10:08 118 98 50 01/16/17 10:05 98 20 90 Diffusion Mask 10.0 01/16/17 10:05 95 16 154/85 99 BiPAP 50 01/16/17 09:55 121 20 179/93 95 Oxymask 8 01/16/17 09:45 95 20 149/112 91 Oxymask 10 01/16/17 09:35 79 18 192/96 91 Oxymask 10 01/16/17 09:25 80 18 180/89 91 Oxymask 7 01/16/17 09:15 77 18 169/75 93 Oxymask 7 01/16/17 09:05 78 18 175/76 92 Oxymask 10 01/16/17 08:55 73 18 158/79 97 Oxymask 5 01/16/17 08:45 74 12 153/85 97 Oxymask 10 01/16/17 08:36 36.7 77 12 153/77 98 Oxymask 10 General Appearance: no apparent distress Respiratory/Chest: no respiratory distress Abdomen: soft Incision(s): drainage (to GAEL drain) Laboratory Results: Results Past 24 Hours Test 01/16/17 11:07 01/17/17 04:44 Range/Units White Blood Count 10.25 4.8-10.8 K/uL Red Blood Count 4.12 4.2-5.4 M/uL Hemoglobin 11.9 12.0-16.0 g/dL Hematocrit 37.3 37-47 % Mean Corpuscular Volume 90.5 80-100 fL Mean Corpuscular Hemoglobin 28.9 25-34 pg Mean Corpuscular Hemoglobin Concent 31.9 32-36 g/dl Platelet Count 221 130-400 K/uL Mean Platelet Volume 10.9 7.4-10.4 fL Neutrophils (%) (Auto) 79.3 % Lymphocytes (%) (Auto) 14.5 % Monocytes (%) (Auto) 3.9 % Eosinophils (%) (Auto) 1.5 % Basophils (%) (Auto) 0.1 % Neutrophils # (Auto) 8.13 1.4-6.5 K/uL Lymphocytes # (Auto) 1.49 1.2-3.4 K/uL Monocytes # (Auto) 0.40 0.11-0.59 K/uL Eosinophils # (Auto) 0.15 0-0.5 K/uL Basophils # (Auto) 0.01 0-0.2 K/uL RDW Standard Deviation 47.9 36.4-46.3 fL RDW Coefficient of Variation 14.5 11.5-14.5 % Immature Granulocyte % (Auto) 0.7 % Immature Granulocyte # (Auto) 0.07 0.00-0.02 K/uL Sodium Level 141 136-145 mmol/L Potassium Level 4.8 3.5-5.1 mmol/L Chloride Level 111 98-107 mmol/L Carbon Dioxide Level 25 21-32 mmol/L Anion Gap 5.0 3-11 mmol/L Blood Urea Nitrogen 9 7-18 mg/dl Creatinine 0.83 0.60-1.20 mg/dl Est Creatinine Clear Calc Drug Dose 65.0 ml/min Estimated GFR () 84.0 Estimated GFR (Non- 72.5 BUN/Creatinine Ratio 11.3 10-20 Random Glucose 148 70-99 mg/dl Calcium Level 8.4 8.5-10.1 mg/dl Total Bilirubin 0.3 0.2-1 mg/dl Direct Bilirubin 0.1 0-0.2 mg/dl Aspartate Amino Transf (AST/SGOT) 76 15-37 U/L Alanine Aminotransferase (ALT/SGPT) 102 12-78 U/L Alkaline Phosphatase 93 45-117 U/L Total Protein 6.3 6.4-8.2 gm/dl Albumin 3.1 3.4-5.0 gm/dl Globulin 3.2 2.5-4.0 gm/dl Albumin/Globulin Ratio 1.0 0.9-2 Lipase 210 73-393 U/L Assessment & Plan 01/17/17- s/p lap nito, drain placement. Lipase normalizing. pt had acute cholecystitis with bilious ascites- cont IV atbx today- probable d/c tomorrow
[2017-01-17] MEDS ORDERED: AMOX875T PO (06:50)
[2017-01-17] MEDS ORDERED: HYDR-5688 PO (06:50)
--- NOTE | 2017-01-17 06:52 | Discharge Instructions ---
Discharge Instructions Date of Service Jan 17, 2017. Admission Reason for Admission: Abdominal Pain Discharge Discharge Diagnosis / Problem: acute cholecystitis, pancreatitis Discharge Goals Goal(s): Decrease discomfort, Improve function, Improve disease control Activity Recommendations Activity Limitations: as noted below Lifting Limitations: no more than 25 pounds Exercise/Sports Limitations: until after follow-up appointment May Resume Sexual Activity: after follow-up appointment Shower/Bathe: tomorrow Driving or Machine Use: wait 5 days SPECIAL CARE INSTRUCTIONS: * Cover incisions and change daily for comfort/drainage. * Empty drain 2-3 times per day and record. * May use ibuprofen for pain as tolerated. * Expect some swelling and bruising. Call your doctor if: * Temperature above 101 degrees * Pain not relieved by pain medicine ordered * There is increased drainage or redness from any incision * You have any unanswered questions or concerns [phone]. FOLLOW UP VISIT: If not already scheduled, please call the office for a follow-up visit. for Monday 01/22- drain removal OFFICE PHONE NUMBER: Dr. Osuna Office . Current Hospital Diet Patient's current hospital diet: Clear Liquid Diet Discharge Diet Recommended Diet: Regular Diet Procedures Procedures Performed: Laparoscopic Cholecystectomy Pending Studies Studies pending at discharge: no Laboratory Results Hemoglobin A1c Test 10/25/16 08:30 Range/Units Estimated Average Glucose 117 mg/dl Hemoglobin A1c 5.7 H 4.5-5.6 % Lipid Panel Test 10/25/16 08:30 01/14/17 23:52 Range/Units Triglycerides Level 134 115 0-150 mg/dl Cholesterol Level 179 0-200 mg/dl HDL Cholesterol 51 mg/dl Cholesterol/HDL Ratio 3.5 LDL Cholesterol, Calculated 101 mg/dl Medical Emergencies . Who to Call and When: Medical Emergencies: If at any time you feel your situation is an emergency, please call 911 immediately. . Non-Emergent Contact Non-Emergency issues call your: Primary Care Provider, Surgeon . "Provider Documentation" section prepared by Amador Osuna. . VTE Core Measure Inpt VTE Proph given/why not?: Unfractionated heparin SQ, SCD's
[2017-01-17 06:58] LABS: HEMATOCRIT 35.3 % (37-47); MEAN CELL VOLUME 89.4 fL (80-100); MEAN CORPUSCULAR HEMOGLOBIN 28.1 pg (25-34); MEAN CORPUSCULAR HGB CONC 31.4 g/dl (32-36); MEAN PLATELET VOLUME 10.9 fL (7.4-10.4); PLATELET COUNT 190 K/uL (130-400); RED BLOOD COUNT 3.95 M/uL (4.2-5.4); WHITE BLOOD COUNT 9.13 K/uL (4.8-10.8)
[2017-01-17 07:42] LABS: BUN/CREATININE RATIO 11.4 (10-20); CALCIUM 8.2 mg/dl (8.5-10.1); CREATININE 0.72 mg/dl (0.60-1.20)
[2017-01-17 07:45] LABS: ALB/GLOB RATIO 1.1 (0.9-2)
[2017-01-17 07:59] VITALS: BP 132/74; PULSE 71; TEMP 36.9; O2SAT 94
--- NOTE | 2017-01-17 08:01 | Anesthesiology Progress Note ---
Anesthesia Post Op Note Date & Time Jan 17, 2017 at 08:01 Vital Signs Pain Intensity: 0.0 Vital Signs Past 12 Hours Date Time Temp Pulse Resp B/P (MAP) Pulse Ox O2 Delivery O2 Flow Rate FiO2 01/17/17 03:05 36.8 66 16 126/73 (90) 98 Nasal Cannula 2.0 01/16/17 23:30 Nasal Cannula 2.0 01/16/17 22:54 95 Nasal Cannula 2.0 01/16/17 22:50 37.0 66 16 122/70 (87) 88 Room Air Notes Mental Status: alert / awake / arousable Nausea / Vomiting: adequately controlled Pain: adequately controlled Airway Patency, RR, SpO2: stable & adequate BP & HR: stable & adequate Hydration State: stable & adequate Anesthetic Complications: no major complications apparent
[2017-01-17 08:11] VITALS: O2SAT 94
[2017-01-17] MEDS: LISINOPRIL 5 MG TAB PO SCH (08:31)
[2017-01-17] MEDS: METOPROLOL SUCC 25MG EXT REL TAB PO SCH (08:31)
--- NOTE | 2017-01-17 11:25 | Hospitalist Progress Note ---
Hospitalist Progress Note Date of Service Jan 17, 2017. (Kathleen Foote ., LÓPEZ) KATTY Physician Supervision Note: I interviewed and examined the patient. Discussed with Kathleen Foote PAC and agree with findings and plan as documented in the note. Any exceptions or clarifications are listed here: None This patient is tolerating advancing diet status post a cholecystectomy by Dr. Amador Osuna. Vital signs are stable Cardiac exam was regular rhythm lungs were clear with good air movement she continues to have sore throat no thrush noted Abdomen was mildly tender wounds reamain clean dry and intact next Patient is status post cholecystectomy for gallstone pancreatitis anticipate discharge 01/18 Documented By: Gordo Siddiqui (Gordo Siddiqui M.D.) Subjective Pt evaluation today including: conversation w/ patient, physical exam, chart review, lab review, review of inpatient medication list Voiding: no voiding problems, no incontinence Patient doing well this AM. Ambulating throughout room. Tolerating clear liquid diet. Pain is well controlled. +flatus. Breathing has improved. Denies SOB, wheezing, or cough. Patient denies any fever, chills, sweats, lightheadedness, dizziness, vision changes, CP, palpitations, edema, SOB, wheezing, cough, abdominal pain, nausea, vomiting, diarrhea, urinary symptoms, melena, numbness/tingling, weakness, muscle/joint pain, anxiety/depression, active bleeding, or new skin discoloration/changes. Spoke to RN- requested dressing change. (Kathleen Foote ., CATERINAC) Medications Current Inpatient Medications Medications (Trade) Dose Ordered Sig/Kinza Route Start Time Stop Time Status Last Admin Dose Admin Lisinopril (Zestril Tab) 5 mg QAM PO 01/15/17 09:00 02/14/17 08:59 01/17/17 08:31 5 MG Metoprolol Succinate (Toprol Xl Tab) 25 mg QAM PO 01/15/17 09:00 02/14/17 08:59 01/17/17 08:31 25 MG Heparin Sodium (Porcine) (Heparin Sq 5000 Unit/0.5ml) 5,000 unit Q8H SQ 01/15/17 06:00 02/14/17 05:59 01/17/17 05:53 5,000 UNIT Acetaminophen (Tylenol Tab) 650 mg Q4H PRN PO 01/15/17 01:00 02/14/17 00:59 01/17/17 04:22 650 MG Al Hydrox/Mg Hydrox/Simethicone (Maalox Max Susp) 15 ml Q4H PRN PO 01/15/17 01:00 02/14/17 00:59 Magnesium Hydroxide (Milk Of Magnesia Susp) 30 ml Q6H PRN PO 01/15/17 01:00 02/14/17 00:59 Polyethylene (Miralax Powder Packet) 17 gm DAILY PRN PO 01/15/17 01:00 02/14/17 00:59 Zolpidem Tartrate (Ambien Tab) 5 mg HSZ PRN PO 01/15/17 01:00 02/14/17 00:59 Ondansetron HCl (Zofran Inj) 4 mg Q6H PRN IV 01/15/17 01:00 02/14/17 00:59 01/16/17 19:31 4 MG Cefuroxime Sodium 1500 mg/Dextrose 115 ml @ 200 mls/hr Q8H IV 01/15/17 12:30 01/25/17 12:29 01/17/17 04:13 200 MLS/HR Acetaminophen/ Hydrocodone Bitart ([place] 5/325 Tab) 1 tab Q4 PRN PO 01/16/17 08:30 01/30/17 08:29 01/16/17 20:10 1 TAB Acetaminophen/ Hydrocodone Bitart ([place] 5/325 Tab) 2 tab Q4 PRN PO 01/16/17 08:30 01/30/17 08:29 Promethazine HCl 25 mg/Sodium Chloride 51 ml @ 204 mls/hr Q6H PRN IV 01/16/17 08:30 02/15/17 08:29 Promethazine HCl 12.5 mg/Sodium Chloride 50.5 ml @ 204 mls/hr Q6H PRN IV 01/16/17 09:15 02/15/17 09:14 Albuterol/ Ipratropium (Duoneb) 3 ml Q4R PRN INH 01/16/17 11:45 02/15/17 11:44 Menthol ([place]) 1 juana PRN PRN PO 01/16/17 23:15 02/15/17 23:14 (Murarik, Kathleen ., PA-C) Objective Vital Signs Date Time Temp Pulse Resp B/P (MAP) Pulse Ox O2 Delivery O2 Flow Rate FiO2 01/17/17 08:11 94 Room Air 01/17/17 07:59 36.9 71 18 132/74 (93) 94 Room Air 01/17/17 07:45 Room Air 01/17/17 03:05 36.8 66 16 126/73 (90) 98 Nasal Cannula 2.0 01/16/17 23:30 Nasal Cannula 2.0 01/16/17 22:54 95 Nasal Cannula 2.0 01/16/17 22:50 37.0 66 16 122/70 (87) 88 Room Air 01/16/17 18:56 37.0 69 18 124/70 (88) 95 Room Air 01/16/17 15:55 Room Air 01/16/17 15:50 36.7 66 18 115/68 (84) 95 Room Air 01/16/17 13:54 70 18 130/74 (92) 01/16/17 12:18 36.4 69 18 107/69 (82) 96 4.0 01/16/17 11:30 67 18 122/67 (85) (Kathleen Foote, KATTY-C) Physical Exam General Appearance: WD/WN, no apparent distress Eyes: normal inspection, PERRL ENT: hearing grossly normal Neck: supple Respiratory/Chest: lungs clear, no respiratory distress, no accessory muscle use Cardiovascular: regular rate, rhythm Abdomen: normal bowel sounds, soft, + tenderness (around incision sites), + pertinent finding (incision sites intact w/ no obvious drainage/erythema; GAEL drain with minimal serous drainage ) Extremities: no pedal edema, no calf tenderness Neurologic/Psychiatric: alert, normal mood/affect, oriented x 3 Skin: normal color, warm/dry, no rash (Kathleen Foote, PA-C) Laboratory Results Last 24 Hours Test 01/17/17 06:36 White Blood Count 9.13 K/uL Red Blood Count 3.95 M/uL Hemoglobin 11.1 g/dL Hematocrit 35.3 % Mean Corpuscular Volume 89.4 fL Mean Corpuscular Hemoglobin 28.1 pg Mean Corpuscular Hemoglobin Concent 31.4 g/dl RDW Standard Deviation 47.4 fL RDW Coefficient of Variation 14.4 % Platelet Count 190 K/uL Mean Platelet Volume 10.9 fL Sodium Level 141 mmol/L Potassium Level 4.0 mmol/L Chloride Level 110 mmol/L Carbon Dioxide Level 25 mmol/L Anion Gap 6.0 mmol/L Blood Urea Nitrogen 8 mg/dl Creatinine 0.72 mg/dl Est Creatinine Clear Calc Drug Dose 74.9 ml/min Estimated GFR () 99.7 Estimated GFR (Non- 86.1 BUN/Creatinine Ratio 11.4 Random Glucose 105 mg/dl Calcium Level 8.2 mg/dl Total Bilirubin 0.4 mg/dl Aspartate Amino Transf (AST/SGOT) 53 U/L Alanine Aminotransferase (ALT/SGPT) 86 U/L Alkaline Phosphatase 79 U/L Total Protein 6.0 gm/dl Albumin 3.1 gm/dl Globulin 2.9 gm/dl Albumin/Globulin Ratio 1.1 (Kathleen Foote, LÓPEZ) Assessment and Plan 66 y/o F Hx HTN, HPL. Pt had enjoyed a steak diner at a friends house when she became acutely ill with nausea, vomiting, diarrhea and moderate to severe upper quadrant abdominal pain. She presented to the ER where her symptoms gradually resolved following treatment with narcotics and antiemetics. A CT abdomen is consistent with enteritis. A gallbladder US reveals a distended gall with multiple stones including a stone lodged in the gallbladder neck. The pt did not have any abdominal tenderness at the time of evaluation for admission. Initial labs are notable for a markedly elevated Lipase. Pancreatitis, secondary to acute cholecystis due to gallstone: - Admit to med/surg - Trend lipase- 29327 at admission (01/14)--> down to 7870 on 01/15--> 210 on - Treated w/ IVF @ 150 ml/hr - Abdominal CT and gallbladder US- cholelithiasis - SOB/wheezing postop- RESOLVED: O2 protocol, DuoNebs PRN, encouraged incentive spirometer - Follow postop CBC and CMP - Consulted General Surgery, appreciate recommendations -- Lap nito on 01/16 due to acute cholecystis -- Pain management per surgery w/ [place] -- Advancing diet per surgery recommendations - Consulted GI, appreciate recommendations HTN: Continue Lisinopril 5 mg daily and Toprol 25 mg daily Hyperlipidemia: Holding Zocor- resume once tolerating diet 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
--- NOTE | 2017-01-17 13:37 | Discharge Instructions ---
Discharge Instructions Date of Service Jan 17, 2017. Admission Reason for Admission: Abdominal Pain Discharge Discharge Diagnosis / Problem: Acute cholecysitis; pancreatitis Discharge Goals Goal(s): Decrease discomfort, Improve function, Improve disease control, Learn about illness, Diagnostic testing, Therapeutic intervention, Prevent Disease Progression Activity Recommendations Activity Limitations: per Instructions/Follow-up section (As per surgical instructions ) . Instructions / Follow-Up Instructions / Follow-Up Surgical management and care as per surgical discharge instructions. General surgery has placed you on Augmentin 875/125 mg by mouth twice per day x5 days and [place] 5/325 mg 1-2 tab by mouth every 6 hours as needed for pain. Resume all other regular home medications as prescribed. FOLLOW-UPS: Please follow-up with your PCP within 5-7 days Please follow-up with General Surgery on 01/22- if you do not hear of an appointment in the next 1 day, please call the office at # [phone] Please follow-up/keep all of your subspecialty appointments Current Hospital Diet Patient's current hospital diet: Low Fat Diet Discharge Diet Recommended Diet: Low Fat Diet Procedures Procedures Performed: Laparoscopic Cholecystectomy, abdominal CT, CXR, gallbladder ultrasound Pending Studies Studies pending at discharge: yes List of pending studies: Gallbladder pathology Laboratory Results Hemoglobin A1c Test 10/25/16 08:30 Range/Units Estimated Average Glucose 117 mg/dl Hemoglobin A1c 5.7 H 4.5-5.6 % Lipid Panel Test 10/25/16 08:30 01/14/17 23:52 Range/Units Triglycerides Level 134 115 0-150 mg/dl Cholesterol Level 179 0-200 mg/dl HDL Cholesterol 51 mg/dl Cholesterol/HDL Ratio 3.5 LDL Cholesterol, Calculated 101 mg/dl Medical Emergencies . Who to Call and When: Medical Emergencies: If at any time you feel your situation is an emergency, please call 911 immediately. . Non-Emergent Contact Non-Emergency issues call your: Primary Care Provider Call Non-Emergent contact if: you have a fever, your pain is not controlled, your pain is worsening, your pain is unusual for you, your pain is concerning you, wound has increased drainage, wound has increased redness, wound has increased pain, you have any medication questions . . "Provider Documentation" section prepared by Kathleen Foote. . VTE Core Measure Inpt VTE Proph given/why not?: Unfractionated heparin SQ, SCD's
--- NOTE | 2017-01-17 13:46 | Discharge Summary ---
Discharge Summary Date of Service Jan 17, 2017. 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 History of kidney stones. COMPARISON STUDY: August 03, 2006 TECHNIQUE: CT scan of the abdomen and pelvis was performed from the lung bases to the proximal femurs. Images are reviewed in the axial, sagittal, and coronal planes. IV contrast was not administered for this examination. A dose lowering technique was utilized adhering to the principles of ALARA. CT DOSE: 685.64 mGycm FINDINGS: Lower chest: The heart is normal in size and configuration, without pericardial effusion. The lung bases and pleural spaces are clear. There is a hiatal hernia Liver: There is trace perihepatic fluid. No focal masses are visualized. Gallbladder: Cholelithiasis. Spleen: There is a small amount of perisplenic fluid. No splenic masses are visualized. Pancreas: There is peripancreatic edema. No pancreatic masses are visualized in this noncontrast study. Adrenal glands: Unremarkable. Kidneys: There is a nonobstructing 4 mm lower pole left renal calculus. There is no hydronephrosis. No ureteral or bladder calculi are visualized. Bowel: There are no transition zones indicate bowel obstruction. There is duodenal, jejunal, and proximal and mid ileal wall thickening. There is infiltration of the mesentery. There is a small amount of interloop fluid. The findings are consistent with a nonspecific enteritis. There is no evidence of acute appendicitis. There is colonic diverticulosis. There is no acute diverticulitis. Peritoneum: No free air is visualized. There is a small amount of free fluid. Vasculature: The abdominal aorta is normal in course and caliber. Adenopathy: There are borderline enlarged mesenteric and periportal lymph nodes. Pelvic viscera: The bladder, and pelvic viscera are unremarkable. Skeletal structures: No destructive osseous lesions are seen. IMPRESSION: 1. No evidence of bowel obstruction. No evidence of free air 2. Cholelithiasis 3. Small bowel wall thickening with mesenteric edema and minimal interloop fluid. The findings are consistent with a nonspecific enteritis. 4. Peripancreatic edema, likely secondary to the above-described enteritis. 5. Diverticulosis. No evidence of acute diverticulitis. No evidence of acute appendicitis 6. Hiatal hernia 7. Nonobstructing lower pole left renal calculus 8. Small amount of free fluid Electronically signed by: Johan Palacio M.D. 01/15/2017 7:07 AM Dictated Date/Time: 01/15/2017 6:58 AM The status of this report is Signed. Draft = Not yet reviewed or approved by Radiologist. Signed = Reviewed and approved by Radiologist. ABDOMINAL ULTRASOUND, RIGHT UPPER QUADRANT HISTORY: Pancreatitis and gallbladder wall thickening. COMPARISON: CT of the abdomen and pelvis January 14, 2017 FINDINGS: The pancreatic body is slightly heterogeneous. The head and tail are obscured. There is no peripancreatic fluid collections. There is a small amount of perihepatic ascites. No biliary ductal dilatation is identified. The common bile duct measures 5 mm in caliber. No choledocholithiasis was identified although the distal common bile duct was partially obscured. The gallbladder is mildly distended and contains several gallstones, one of which was immobile within the gallbladder neck. There was no gallbladder wall thickening. Gallbladder sludge was noted. There is trace pericholecystic fluid. No sonographic Cee sign was elicited. No hepatic lesions were identified. No right hydronephrosis was identified. IMPRESSION: 1. Cholelithiasis and mild gallbladder distention with trace pericholecystic fluid. No sonographic Cee's sign or gallbladder wall thickening. A hepatobiliary scan could be obtained if suspicion for acute cholecystitis. 2. No biliary ductal dilatation. 3. Heterogeneity of the pancreatic body which could be correlated with biochemical assays for acute pancreatitis. 4. Small amount of perihepatic fluid. Electronically signed by: Randy Olmedo M.D. 01/15/2017 7:02 AM Dictated Date/Time: 01/15/2017 6:57 AM The status of this report is Signed. Draft = Not yet reviewed or approved by Radiologist. Signed = Reviewed and approved by Radiologist. CHEST ONE VIEW PORTABLE CLINICAL HISTORY: Shortness of breath COMPARISON STUDY: No previous studies for comparison. FINDINGS: The heart is mildly enlarged. There are postsurgical changes of a midline sternotomy. There is pulmonary edema. There is no lobar consolidation. There is an equivocal small right pleural effusion[ IMPRESSION: Pulmonary edema. Electronically signed by: Johan Palacio M.D. 01/16/2017 10:41 AM Dictated Date/Time: 01/16/2017 10:41 AM The status of this report is Signed. Draft = Not yet reviewed or approved by Radiologist. Signed = Reviewed and approved by Radiologist. Operative Report Operative Date Jan 16, 2017. Pre-Operative Diagnosis cholelithiasis. gallstone pancreatitis Post-Operative Diagnosis same, bilious ascites, hydrops of gallbladder, acute cholecystitis Procedure(s) Performed Laparoscopic Cholecystectomy Surgeon Dr. Amador Osuan Monitoring Specialist Surgeon(s) Scar Carlos Pa-C Estimated Blood Loss 10 ml Findings see above, hydrops Specimens a. Gallbladder Drains #[address] Rd GAEL to subhepatic space Complication(s) None Consultations: General Surgery GI (Kathleen Foote, LÓPEZ) Discharge Date: Jan 18, 2017 Procedures: cholecystectomy 01/16/17 (Gordo Siddiqui M.D.) Medication Reconciliation New Medications: Amoxicillin & Pot Clavulanate (Augmentin 875-125 mg) 1 Tab Tab 1 TAB PO BID, #10 TAB Hydrocodone/Acetaminophen 5MG/325MG ([place] 5MG/325MG) Tab 1-2 TABLET PO q 6 hrs PRN for Pain, #30 TAB PRN PAIN Continued Medications: Biotin (Biotin) Unknown Strength Tab Unknown Dose PO DAILY Calcium Carbonate (Calcium) Unknown Strength Tab Unknown Dose PO DAILY Cholecalciferol (Vitamin D3) Unknown Strength Cap Unknown Dose PO DAILY for 90 Days, CAP 3 Refills Lactobacillus-Inulin (Culturelle) 1 Cap Cap 1 CAP PO DAILY Lisinopril (Zestril) Unknown Strength Tab Unknown Dose PO DAILY, TAB Magnesium Oxide (Mg Supplement (Magnesium) Unknown Strength Cap Unknown Dose PO DAILY Metoprolol Succ (Toprol Xl) (Toprol-Xl) Unknown Strength Tabcr Unknown Dose PO DAILY, #30 TAB Multivitamin (Multivitamin) Tab 1 TAB PO DAILY, TAB [place]-3 Fatty Acids (Fish Oil [place]-3 1000 mg) 1 Cap Cap 1 CAP PO DAILY Simvastatin (Zocor) Unknown Strength Tab Unknown Dose PO QPM, TAB Referrals At Discharge Follow up Referrals: Surgery Referral - 01/22/17 with Amador Osuna M.D. Discharge Exam Review of Systems: Constitutional: No fever, No chills, No sweats, No weakness, No fatigue ENT: No hearing loss Respiratory: No cough, No sputum, No wheezing, No shortness of breath, No dyspnea on exertion, No hemoptysis Cardiovascular: No chest pain, No edema, No palpitations Abdomen: No pain, No nausea, No vomiting, No diarrhea, No constipation Musculoskeletal: No joint pain, No muscle pain, No swelling, No calf pain Genitourinary - Female: No dysuria, No hematuria Neurologic: No weakness, No numbness/tingling Psychiatric: No depression symptoms, No anxiety Endocrine: No fatigue Hematologic / Lymphatic: No abnormal bleeding/bruising Integumentary: No rash, No itch, No new/changing skin lesions Physical Exam: General Appearance: no apparent distress Eyes: normal inspection, PERRL ENT: hearing grossly normal Neck: supple Respiratory/Chest: lungs clear Cardiovascular: regular rate, rhythm Abdomen / GI: normal bowel sounds, soft, + tenderness (around incision sites ), + pertinent finding (incision sites intact w/ no obvious drainage/ erythema; GAEL drain with minimal serous drainage) Extremities: no calf tenderness, no pedal edema Neurologic/Psychiatric: alert, normal mood/affect, oriented x 3 Skin: normal color, warm/dry, no rash (Kathleen Foote, LÓPEZ) Hospital Course Admission H&P: 66 y/o F Hx HTN, HPL. Pt had enjoyed a steak diner at a friends house when she became acutely ill with nausea, vomiting, diarrhea and moderate to severe upper quadrant abdominal pain. She presented to the ER where her symptoms gradually resolved following treatment with narcotics and antiemetics. A CT abdomen is consistent with enteritis. A gallbladder US reveals a distended gall with multiple stones including a stone lodged in the gallbladder neck. The pt did not have any abdominal tenderness at the time of evaluation for admission. Initial labs are notable for a markedly elevated Lipase. Physical Exam Vital Signs Date Time Temp Pulse Resp B/P (MAP) Pulse Ox O2 Delivery O2 Flow Rate FiO2 01/15/17 01:33 85 20 112/62 96 01/14/17 23:55 77 20 109/46 96 Room Air 01/14/17 22:30 66 16 131/64 97 Room Air 01/14/17 22:03 69 01/14/17 21:50 94 Room Air 01/14/17 21:44 36.5 65 18 171/94 94 Room Air General Appearance: WD/WN, no apparent distress Head: normocephalic Eyes: normal inspection ENT: normal ENT inspection, pharynx normal Neck: supple, no JVD Respiratory/Chest: chest non-tender, lungs clear, normal breath sounds, no respiratory distress, no accessory muscle use Cardiovascular: regular rate, rhythm, no edema, no gallop, no JVD, no murmur, normal peripheral pulses Abdomen/GI: normal bowel sounds, non tender, soft Back: normal inspection, no CVA tenderness, no muscle spasm, normal range of motion Extremities/Musculoskelatal: normal inspection, normal range of motion Neurologic/Psych: tutorial laboratory supervisor II-XII nml as tested, no motor/sensory deficits, alert, normal mood/affect, normal reflexes, oriented x 3 Skin: normal color, warm/dry, no rash Hospital Course: Pancreatitis, secondary to acute cholecystis due to gallstone: - Admit to med/surg - Trend lipase- 65003 at admission (01/14)--> down to 7870 on 01/15--> 210 on - Treated w/ IVF @ 150 ml/hr - Abdominal CT and gallbladder US- cholelithiasis - SOB/wheezing postop- RESOLVED: O2 protocol, DuoNebs PRN, encouraged incentive spirometer - Tolerated full diet prior to discharge - Consulted General Surgery, appreciate recommendations -- Lap nito on 01/16 due to acute cholecystis -- Pain management per surgery w/ [place] - Consulted GI, appreciate recommendations HTN: Continue Lisinopril 5 mg daily and Toprol 25 mg daily Hyperlipidemia: Holding Zocor due to NPO- resume at discharge 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 (Kathleen Foote ., PA-C) pt with gall stone pancreatitis, s/p cholecystectomy by Dr Osuna 01/16/17, has done well post op with tolerating of advanced diet, will have home with drain to be removed in office, complete antibiotic course (Gordo Siddiqui M.D.) Discharge Instructions Please refer to the electronic Patient Visit Report (Discharge Instructions) for additional information. (Kathleen Foote, PA-C) Follow-Up Please follow-up with your PCP within 5-7 days Please follow-up with General Surgery on 01/[address] Osuna Please follow-up/keep all of your subspecialty appointments (Kathleen Foote, PA-C) Additional Copies To Gladys Malloy,
[2017-01-17 15:26] VITALS: BP 142/73; PULSE 72; TEMP 37.1; O2SAT 97
[2017-01-17 22:55] VITALS: BP 132/76; PULSE 74; TEMP 37.1; O2SAT 96
[2017-01-18] MEDS: CEFUROXIME IV 1,500 MG in DEXTROSE 5% 100ML 100 ML IV SCH (03:57)
[2017-01-18] MEDS: HEPARIN SOD 5000 UNIT/0.5 ML CARP SQ SCH (06:09)
[2017-01-18 06:21] LABS: HEMATOCRIT 34.2 % (37-47); MEAN CELL VOLUME 87.9 fL (80-100); MEAN CORPUSCULAR HGB CONC 31.9 g/dl (32-36); MEAN PLATELET VOLUME 10.4 fL (7.4-10.4); PLATELET COUNT 193 K/uL (130-400); RED BLOOD COUNT 3.89 M/uL (4.2-5.4); WHITE BLOOD COUNT 7.51 K/uL (4.8-10.8)
--- NOTE | 2017-01-18 06:45 | Surgery Progress Note ---
Surgery Progress Note Date of Service Jan 18, 2017. Subjective + feeling well, + pain controlled, No nausea, No vomiting wants to go home Objective Vital Signs: Date Time Temp Pulse Resp B/P (MAP) Pulse Ox O2 Delivery O2 Flow Rate FiO2 01/18/17 00:00 Room Air 01/17/17 22:55 37.1 74 16 132/76 (94) 96 Room Air 01/17/17 16:16 Room Air 01/17/17 15:26 37.1 72 18 142/73 (96) 97 Room Air 01/17/17 08:11 94 Room Air 01/17/17 07:59 36.9 71 18 132/74 (93) 94 Room Air 01/17/17 07:45 Room Air General Appearance: no apparent distress Respiratory/Chest: no respiratory distress Abdomen: soft Incision(s): drainage (GAEL in place) Laboratory Results: Results Past 24 Hours Test 01/18/17 05:59 Range/Units White Blood Count 7.51 4.8-10.8 K/uL Red Blood Count 3.89 4.2-5.4 M/uL Hemoglobin 10.9 12.0-16.0 g/dL Hematocrit 34.2 37-47 % Mean Corpuscular Volume 87.9 80-100 fL Mean Corpuscular Hemoglobin 28.0 25-34 pg Mean Corpuscular Hemoglobin Concent 31.9 32-36 g/dl RDW Standard Deviation 46.2 36.4-46.3 fL RDW Coefficient of Variation 14.3 11.5-14.5 % Platelet Count 193 130-400 K/uL Mean Platelet Volume 10.4 7.4-10.4 fL Assessment & Plan 01/18/17- doing well- for d/c home today with drain- for followup in office early next week- drain removal and checkup. scripts in chart 01/17/17- s/p lap nito, drain placement. Lipase normalizing. pt had acute cholecystitis with bilious ascites- cont IV atbx today- probable d/c tomorrow 01/17/17- s/p lap nito, drain placement. Lipase normalizing. pt had acute cholecystitis with bilious ascites- cont IV atbx today- probable d/c tomorrow
[2017-01-18 07:52] VITALS: BP 134/80; PULSE 76; TEMP 36.9; O2SAT 93
[2017-01-18 07:54] VITALS: O2SAT 93
[2017-01-18] MEDS: METOPROLOL SUCC 25MG EXT REL TAB PO SCH (08:49)
[2017-01-18] MEDS: LISINOPRIL 5 MG TAB PO SCH (08:49)
[2017-01-18 09:57] VITALS: BP 134/80; PULSE 76; TEMP 36.9; O2SAT 93
== END 2017-01-18 11:05 | disposition home health service (06) | DRG 417 ==
LOC: EDBD 21:33 → C.EDB 21:34 → C.MS2W 01-15 01:18 → ENRESERV 01-15 01:23 → C.MSW 01-16 10:43
PROVIDERS: ADMIT Internal Medicine; ATTEND Internal Medicine
PROC: 0FT44ZZ Resection of Gallbladder, Percutaneous Endoscopic Approach (ICD-10-PCS; principal; 2017-01-16 07:15)
DX: K80.42 Calculus of bile duct with acute cholecystitis without obstruction (principal); K85.10 Biliary acute pancreatitis without necrosis or infection; K82.1 Hydrops of gallbladder; R18.8 Other ascites; I10 Essential (primary) hypertension; E78.5 Hyperlipidemia, unspecified; R01.1 Cardiac murmur, unspecified; M54.2 Cervicalgia; R11.10 Vomiting, unspecified; Z95.2 Presence of prosthetic heart valve; Z86.19 Personal history of other infectious and parasitic diseases; Z79.899 Other long term (current) drug therapy; Z87.891 Personal history of nicotine dependence

== ENCOUNTER → 2017-07-05 | Outpatient (CLI) | payer OTHER ==
[~2017-07-05] MED LIST changes: +BIOT800T2 PO; +CALC-393 PO; +CHOL2000 PO; +HYDR-5688 PO; -KETO10TA PO; +LACT10CA3 PO; +LISI-461 PO; +MAGN1CAP2 PO; +METO50TA7 PO; -MORP15TA19 PO; +MULT-506 PO; +OMEG-128 PO; -OXYC1TAB3 PO; +SIMV10TA5 PO; -TOPROL; -TRIAMTERENE/HCTZ; -VYTORIN
--- NOTE | 2017-07-05 13:44 | MAMMOGRAPHY REPORT ---
BILATERAL DIGITAL SCREENING MAMMOGRAM TOMOSYNTHESIS WITH CAD: 07/05/2017 CLINICAL HISTORY: Routine screening. The patient has no current complaints. TECHNIQUE: Breast tomosynthesis in addition to standard 2D mammography was performed. Current study was also evaluated with a Computer Aided Detection (CAD) system. COMPARISON: Comparison is made to exams dated: 06/30/2016 mammogram, 05/12/2015 mammogram, 05/12/2015 s tereotactic biopsy, 04/22/2015 mammogram, 10/06/2014 mammogram, and 02/18/2014 ultrasound - [facility]. BREAST COMPOSITION: The tissue of both breasts is almost entirely fatty. FINDINGS: No suspicious masses, calcifications, or areas of architectural distortion are noted in ei ther breast. There has been no significant interval change compared to prior exams. Scattered bilater al benign-appearing calcifications are not significantly changed. A biopsy marker clip is again note d within the right upper outer quadrant. IMPRESSION: ACR BI-RADS CATEGORY 2: BENIGN There is no mammographic evidence of malignancy. A 1 year screening mammogram is recommended. The pa tient will receive written notification of the results. Approximately 10% of breast cancers are not detected with mammography. A negative mammographic report should not delay biopsy if a clinically suggestive mass is present. Kelli Bowman M.D. /:07/05/2017 09:01:55 Application Development Liaison: Martha CASTILLO(R)(M), [facility] letter sent: Normal 1/2 BI-RADS Code: ACR BI-RADS Category 2: Benign
== END | disposition home or self-care (01) ==
LOC: C.MAMM 07:50
PROVIDERS: ATTEND Family Medicine
DX: Z12.31 Encounter for screening mammogram for malignant neoplasm of breast (principal)